=== PATIENT | male | born 1950 | race Caucasian/White ===

== ENCOUNTER 2017-09-25 13:27 | Inpatient (IN) | payer MEDICARE, MEDICAID ==
[2017-09-25] VITALS (11 sets, daily range): BP systolic 62–97; BP diastolic 40–57; PULSE 65–102; RESP 18–23; TEMP 97.5–98.1; O2SAT 94–100
[~2017-09-25] VITALS: Ht 165.1 cm; Wt 80.0 kg
[~2017-09-25 13:27] MED LIST: ALPR0.5T3 PO; LISI10TA3 PO; MEDR4PAK PO; ZANT150T2 PO
[2017-09-25] MEDS ORDERED: SODIUM CHLOR 0.9% 1000 ML INJ 100 ML IV ONE (14:07)
[2017-09-25] MEDS ORDERED: SODIUM CHLOR 0.9% 1000 ML INJ 1,000 ML IV ONE ×3 (14:07→16:00)
[2017-09-25] MEDS ORDERED: RESP: ALBUTEROL 2.5 MG/IPRATROPIUM 0.5 MG NEB (SCH) NEB ONE ×2 (14:30→15:00)
[2017-09-25 14:37] LABS: AUTOMATED NEUTROPHIL # 10.9 TH/MM3 (1.8-7.7); BASOPHIL # 0.1 TH/MM3 (0-0.2); BASOPHIL % 0.4 % (0.0-2.0); EOSINOPHIL % 0.1 % (0.0-4.0); HEMOGLOBIN 13.5 GM/DL (13.0-17.0); LYMPH % 12.3 % (9.0-44.0); LYMPHOCYTE # 1.7 TH/MM3 (1.0-4.8); MEAN CELL VOLUME 95.8 FL (80.0-100.0); MEAN CORPUSCULAR HEMOGLOBIN 32.2 PG (27.0-34.0); MEAN CORPUSCULAR HGB CONC 33.6 % (32.0-36.0); MEAN PLATELET VOLUME 7.5 FL (7.0-11.0); MONO % 6.1 % (0.0-8.0); MONOCYTE # 0.8 TH/MM3 (0-0.9); NEUT % 81.1 % (16.0-70.0); PLATELET COUNT 316 TH/MM3 (150-450); RED BLOOD COUNT 4.18 MIL/MM3 (4.50-5.90); WHITE BLOOD COUNT 13.5 TH/MM3 (4.0-11.0)
--- NOTE | 2017-09-25 14:55 | RADRPT ---
EXAM DATE/TIME: 09/25/2017 14:33 [facility] COMPARISON: No previous studies available for comparison. INDICATIONS : Cough, dizziness, shortness of breath and lower left chest pain for one week. MEDICAL HISTORY : None. SURGICAL HISTORY : None. ENCOUNTER: Initial ACUITY: 1 day PAIN SCORE: 4/10 LOCATION: Left lower chest FINDINGS: A single view of the chest demonstrates the lungs to be symmetrically aerated without evidence of mas s, infiltrate or effusion. Mild compensated cardiomegaly. Osseous structures are intact. CONCLUSION: Mild compensated cardiomegaly Kenneth Hightower MD FACR on September 25, 2017 at 14:52 Board Certified Radiologist. This report was verified electronically.
[2017-09-25] MEDS ORDERED: methylPREDNISolone SOD SUCC 125 MG/2 ML VIAL IV PUSH ONE (15:00)
[2017-09-25 15:02] LABS: ALBUMIN 3.1 GM/DL (3.4-5.0); ALT (GPT) 25 U/L (12-78); AST (GOT) 15 U/L (15-37); BICARBONATE 18.3 MEQ/L (21.0-32.0); BLOOD UREA NITROGEN 49 MG/DL (7-18); CALCIUM 8.5 MG/DL (8.5-10.1); CHLORIDE 106 MEQ/L (98-107); CREATININE 2.32 MG/DL (0.60-1.30); DIRECT BILIRUBIN ADULT 0.1 MG/DL (0.0-0.2); GLOMERULAR FILTRATION RATE 28 ML/MIN (>89); GLUCOSE,RANDOM 129 MG/DL (74-106); MAGNESIUM 1.8 MG/DL (1.5-2.5); PHOSPHORUS 3.3 MG/DL (2.5-4.9); SODIUM (NA) 135 MEQ/L (136-145)
[2017-09-25 15:05] LABS: ALKALINE PHOSPHATASE 59 U/L (45-117); INDIRECT BILIRUBIN 0.4 MG/DL (0.0-0.8); TOTAL BILIRUBIN ADULT 0.5 MG/DL (0.2-1.0); TOTAL PROTEIN 7.4 GM/DL (6.4-8.2); TROPONIN I 0.02 NG/ML (0.02-0.05)
--- NOTE | 2017-09-25 15:19 | PD ---
HPI Chief Complaint: Cold / Flu Symptoms Time Seen by Provider: 14:03 Travel History International Travel<30 days: No Contact w/Intl Traveler<30days: No Traveled to known affect area: No History of Present Illness HPI 67 y/o male states he's been having cough and congestion over the past couple of days. He states he's also been having a high fever. He states he feels worse when he moves around. He denies other specific modifying factors. He denies specific sick contacts. He denies other specific concurrent complaints. He denies prior inhaler use. Duration is 3 days. PFSH Past Medical History Arthritis: Yes Anxiety: Yes Depression: Yes COPD: Yes Diminished Hearing: No Gastrointestinal Disorders: Yes (HX OF BLEEDING ULCER) GERD: Yes Hypertension: Yes Myocardial Infarction: No Ulcer: Yes Past Surgical History Abdominal Surgery: Yes (UMBILICAL HERNIA REPAIR, ) Other Surgery: Yes (SURGERY STATES FLAP NEAR STOMACH FOR REPAIR OF ACID REFLUX ) Social History Alcohol Use: No Tobacco Use: No (QUIT 2010, SMOKED 1 PPD FOR APPROX 50+ YRS) Substance Use: No Allergies-Medications (Allergen,Severity, Reaction): Coded Allergies: No Known Allergies (Verified Allergy, Unknown, 09/25/17) Reported Meds & Prescriptions Reported Meds & Active Scripts Active Zantac (Ranitidine HCl) 150 Mg Tab 150 Mg PO BID Medrol Dosepak (Methylprednisolone) 4 Mg Dspk 4 Mg PO DIRECTED Per Pharmacist direction Reported Alprazolam 0.5 Mg Tab 0.5 Mg PO BID PRN Lisinopril 10 Mg Tab 10 Mg PO DAILY Review of Systems Except as stated in HPI: all other systems reviewed are Neg Physical Exam Narrative GENERAL: 67-year-old male who appears ill SKIN: Focused skin assessment warm/dry. HEAD: Atraumatic. Normocephalic. EYES: Pupils equal and round. No scleral icterus. No injection or drainage. ENT: No nasal bleeding or discharge. Mucous membranes pink and moist. NECK: Trachea midline. CARDIOVASCULAR: Regular rate and rhythm. RESPIRATORY: No accessory muscle use. Expiratory wheezing bilaterally. GASTROINTESTINAL: Abdomen soft, non-tender, nondistended. MUSCULOSKELETAL: No obvious deformities. No clubbing. No cyanosis. NEUROLOGICAL: Awake. Moves all extremities. Normal speech. PSYCHIATRIC: Appropriate mood and affect; insight and judgment normal. Data Data Last Documented VS Vital Signs Date Time Temp Pulse Resp B/P (MAP) Pulse Ox O2 Delivery O2 Flow Rate FiO2 09/25/17 16:57 83 92/52 (65) 95 09/25/17 15:31 22 Aerosol Mask 09/25/17 13:52 97.5 Orders Orders Electrocardiogram (09/25/17 13:51) Complete Blood Count With Diff (09/25/17 13:51) Basic Metabolic Panel (Bmp) (09/25/17 13:51) Ckmb (Isoenzyme) Profile (09/25/17 13:51) Troponin I (09/25/17 13:51) Sepsis Workup Initiated (09/25/17 ) Electrocardiogram (09/25/17 14:07) Prothrombin Time / Inr (Pt) (09/25/17 14:07) Act Partial Throm Time (Ptt) (09/25/17 14:07) Lactic Acid Sepsis Protocol (09/25/17 14:07) Urinalysis - C+S If Indicated (09/25/17 14:07) Influenzae A/B Antigen (09/25/17 14:07) Blood Culture (09/25/17 14:07) Chest, Single Ap (09/25/17 14:07) Blood Glucose (09/25/17 14:07) Ecg Monitoring (09/25/17 14:07) Iv Access Insert/Monitor (09/25/17 14:07) Oximetry (09/25/17 14:07) Sodium Chlor 0.9% 1000 Ml Inj (Ns 1000 M (09/25/17 14:07) Sodium Chlor 0.9% 1000 Ml Inj (Ns 1000 M (09/25/17 14:07) Sodium Chlor 0.9% 1000 Ml Inj (Ns 1000 M (09/25/17 14:07) Albuterol-Ipratropium Neb (Duoneb Neb) (09/25/17 14:30) Hepatic Functional Panel (09/25/17 14:15) Magnesium (Mg) (09/25/17 14:15) Phosphorus (Po4) (09/25/17 14:15) Albuterol-Ipratropium Neb (Duoneb Neb) (09/25/17 15:00) Methylprednisolone So Succ Inj (Solumedr (09/25/17 15:00) CKMB (09/25/17 14:15) CKMB% (09/25/17 14:15) Sodium Chlor 0.9% 1000 Ml Inj (Ns 1000 M (09/25/17 16:00) Vancomycin Inj (Vancomycin Inj) (09/25/17 15:58) Piperacil-Tazo 4.5 Gm Premix (Zosyn 4.5 (09/25/17 15:58) Ct Thorax/ Chest Wo Iv Contras (09/25/17 16:15) Ct Abd/Pel W/O Iv Contrast (09/25/17 16:15) B-Type Natriuretic Peptide (09/25/17 16:55) Oseltamivir (Tamiflu) (09/25/17 17:15) Admit Order (Ed Use Only) (09/25/17 17:01) Labs Laboratory Tests Test 09/25/17 14:15 09/25/17 14:18 09/25/17 14:25 White Blood Count 13.5 TH/MM3 Red Blood Count 4.18 MIL/MM3 Hemoglobin 13.5 GM/DL Hematocrit 40.0 % Mean Corpuscular Volume 95.8 FL Mean Corpuscular Hemoglobin 32.2 PG Mean Corpuscular Hemoglobin Concent 33.6 % Red Cell Distribution Width 13.0 % Platelet Count 316 TH/MM3 Mean Platelet Volume 7.5 FL Neutrophils (%) (Auto) 81.1 % Lymphocytes (%) (Auto) 12.3 % Monocytes (%) (Auto) 6.1 % Eosinophils (%) (Auto) 0.1 % Basophils (%) (Auto) 0.4 % Neutrophils # (Auto) 10.9 TH/MM3 Lymphocytes # (Auto) 1.7 TH/MM3 Monocytes # (Auto) 0.8 TH/MM3 Eosinophils # (Auto) 0.0 TH/MM3 Basophils # (Auto) 0.1 TH/MM3 CBC Comment AUTO DIFF Differential Total Cells Counted 100 Neutrophils % (Manual) 61 % Band Neutrophils % 24 % Lymphocytes % 11 % Monocytes % 4 % Neutrophils # (Manual) 11.5 TH/MM3 Differential Comment FINAL DIFF MANUAL Toxic Granulation 1+ Dohle Bodies PRESENT Platelet Estimate NORMAL Platelet Morphology Comment NORMAL Prothrombin Time 11.4 SEC Prothromb Time International Ratio 1.1 RATIO Activated Partial Thromboplast Time 25.2 SEC Blood Urea Nitrogen 49 MG/DL Creatinine 2.32 MG/DL Random Glucose 129 MG/DL Total Protein 7.4 GM/DL Albumin 3.1 GM/DL Calcium Level 8.5 MG/DL Phosphorus Level 3.3 MG/DL Magnesium Level 1.8 MG/DL Alkaline Phosphatase 59 U/L Aspartate Amino Transf (AST/SGOT) 15 U/L Alanine Aminotransferase (ALT/SGPT) 25 U/L Total Bilirubin 0.5 MG/DL Direct Bilirubin 0.1 MG/DL Sodium Level 135 MEQ/L Potassium Level 4.4 MEQ/L Chloride Level 106 MEQ/L Carbon Dioxide Level 18.3 MEQ/L Anion Gap 11 MEQ/L Estimat Glomerular Filtration Rate 28 ML/MIN Indirect Bilirubin 0.4 MG/DL Total Creatine Kinase 143 U/L Creatine Kinase MB 1.8 NG/ML Troponin I 0.02 NG/ML Lactic Acid Level 1.3 mmol/L Urine Color YELLOW Urine Turbidity HAZY Urine pH 5.0 Urine Specific [place] 1.013 Urine Protein TRACE mg/dL Urine Glucose (UA) NEG mg/dL Urine Ketones NEG mg/dL Urine Occult Blood NEG Urine Nitrite NEG Urine Bilirubin NEG Urine Urobilinogen LESS THAN 2.0 MG/DL Urine Leukocyte Esterase NEG Urine WBC 2 /hpf Urine Hyaline Casts 21 /lpf Urine Mucus FEW /lpf Microscopic Urinalysis Comment CATH-CULT NOT IND MDM Medical Decision Making Medical Screen Exam Complete: Yes Emergency Medical Condition: Yes Medical Record Reviewed: Yes (past history confirmed) Interpretation(s) CBC & BMP Diagram 09/25/17 14:15 Total Protein 7.4, Albumin 3.1 L, Calcium Level 8.5, Phosphorus Level 3.3, Magnesium Level 1.8, Alkaline Phosphatase 59, Aspartate Amino Transf (AST/SGOT) 15, Alanine Aminotransferase (ALT/SGPT) 25, Total Bilirubin 0.5, Direct Bilirubin 0.1 Last 24 hours Impressions Chest X-Ray 09/25/17 1407 Signed Impressions: Service Date/Time: Monday, September 25, 2017 14:33 - CONCLUSION: Mild compensated cardiomegaly Kenneth Hightower MD FACR Differential Diagnosis Pneumonia, sepsis, COPD, anemia, renal failure Narrative Course Will check blood work, chest x-ray, influenza and dose with IV fluids and DuoNeb and reevaluate ED workup shows flulike symptoms with acute renal failure. No obvious source but scattered infiltrate on CT chest noted. Patient feeling better after IV fluid hydration and map is now in the 60s. He will be monitored closely in the ICU. He was given broad-spectrum coverage. Critical Care Narrative Aggregate critical care time was 31 minutes. Time to perform other separately billable procedures was not included in the critical care time. My time did not include minutes spent treating any other patients simultaneously or on activities that did not directly contribute to the patient's treatment. The services I provided to this patient were to treat and/or prevent clinically significant deterioration that could result in: Restrained failure, I provided critical care services requiring my management, as noted below: Chart data review, documentation time, medication orders and management, vital sign assessments/reviewing monitor data, ordering and reviewing lab tests, ordering and interpreting/reviewing x-rays and diagnostic studies, care of the patient and discussion of the patient with the admitting physicians. Sepsis Criteria SIRS Criteria (2 or more): RR > 20 or PaCO2 < 32, WBC > 78975, < 4000 or > 10 % bands Sepsis Criteria (SIRS+source): Infect source susp/known Severe Sepsis (+one): Acute Oliguria/Renal Failure Criteria Outcome: Meets severe sepsis criteria Physician Communication Physician Communication dr evans agrees to admit Diagnosis Primary Impression: Sepsis Qualified Codes: A41.9 - Sepsis, unspecified organism Additional Impressions: Acute renal failure Qualified Codes: N17.9 - Acute kidney failure, unspecified Flu-like symptoms Bandemia Reactive airway disease Qualified Codes: J45.901 - Unspecified asthma with (acute) exacerbation Hypotension Qualified Codes: I95.9 - Hypotension, unspecified Admitting Information Admitting Physician Requests: Admit Sera Kumar MD Sep 25, 2017 15:19
[2017-09-25 15:26] LABS: INTERNATIONAL NORMALIZED RATIO 1.1 RATIO; PROTHROMBIN TIME - PATIENT 11.4 SEC (9.8-11.6)
[2017-09-25] MEDS ORDERED: VANCOMYCIN INJ 1,000 MG in SODIUM CHLOR 0.9% 250 ML INJ 250 ML IV STA (15:58)
[2017-09-25] MEDS ORDERED: PIPERACIL-TAZO 4.5 GM PREMIX 100 ML IV STA (15:58)
[2017-09-25 16:04] LABS: BANDS 24 % (0-6); LYMPHOCYTES 11 % (9-44); MONOCYTES 4 % (0-8); NEUTROPHIL # MANUAL DIFF 11.5 TH/MM3 (1.8-7.7); POLYS (SEG NEUTROPHILS) 61 % (16-70)
[2017-09-25 16:05] LABS: DOHLE BODIES PRESENT (NONE SEEN); TOXIC GRANULATION 1+ (NORMAL)
--- NOTE | 2017-09-25 16:48 | RADRPT ---
EXAM DATE/TIME: 09/25/2017 16:30 [facility] COMPARISON: No previous studies available for comparison. INDICATIONS : Shortness of breath. Chest pain. RADIATION DOSE: 17.20 CTDIvol (mGy) ; Combined studies - Thorax/Abdomen/Pelvis MEDICAL HISTORY : Chronic obstructive pulmonary disease. Congestive heart failure. Hypertension. SURGICAL HISTORY : None. ENCOUNTER: Initial ACUITY: 1 day PAIN SCALE: 6/10 LOCATION: Bilateral chest TECHNIQUE: Volumetric scanning of the chest was performed. Using automated exposure control and adjustment of t he mA and/or kV according to patient size, radiation dose was kept as low as reasonably achievable to obtain optimal diagnostic quality images. DICOM format image data is available electronically for r eview and comparison. Follow-up recommendations for detected pulmonary nodules are based at a minimum on nodule size and pa tient risk factors according to Fleischner Society Guidelines. FINDINGS: There is cardiomegaly with moderate interstitial edema present. There is no pneumothorax. There is no pleural effusion. There is no consolidation. Moderate coronary calcifications are evident. There is no adenopathy. Review of bone windows reveals moderate degenerative changes. Upper abdominal contents as detailed CT scan abdomen and pelvis. CONCLUSION: Moderate congestive failure. Kenneth Hightower MD FACR on September 25, 2017 at 16:44 Board Certified Radiologist. This report was verified electronically.
--- NOTE | 2017-09-25 16:52 | RADRPT ---
EXAM DATE/TIME: 09/25/2017 16:30 [facility] COMPARISON: No previous studies available for comparison. INDICATIONS : Bilateral flank pain. ORAL CONTRAST: No oral contrast ingested. RADIATION DOSE: 17.20 CTDIvol (mGy) ; Combined studies - Thorax/Abdomen/Pelvis MEDICAL HISTORY : Chronic obstructive pulmonary disease. Congestive heart failure. Hypertension. SURGICAL HISTORY : None. ENCOUNTER: Initial ACUITY: 1 day PAIN SCALE: 6/10 LOCATION: Bilateral flank TECHNIQUE: Volumetric scanning of the abdomen and pelvis was performed. Using automated exposure control and ad justment of the mA and/or kV according to patient size, radiation dose was kept as low as reasonably achievable to obtain optimal diagnostic quality images. DICOM format image data is available electro nically for review and comparison. FINDINGS: LOWER LUNGS: Bibasilar parenchymal changes. Liver contains a single calcification in the right lobe. Gallbladder is unremarkable Spleen and pancreas appear normal Adrenal glands are unremarkable There is perinephric stranding about both kidneys without stone. Low-density 1.8 cm mass mid pole ri ght kidney incompletely evaluated on today's exam There is no ascites or adenopathy Pelvic contents are unremarkable Review of bone windows reveals extensive degenerative changes in the lower lumbar spine. CONCLUSION: 1. 1.8 cm renal mass probably cyst incompletely evaluated the exam. 2. Negative for stone or obstruction 3. I do not see an etiology for patient's abdominal pain Kenneth Hightower MD FACR on September 25, 2017 at 16:47 Board Certified Radiologist. This report was verified electronically.
[2017-09-25 16:53] LABS: BILIRUBIN, URINE NEG (NEG); BLOOD, URINE NEG (NEG); GLUCOSE,URINE NEG (NEG); HYALINE CAST, URINE 21 /lpf (RARE); KETONE, URINE NEG (NEG); MUCUS URINE FEW /lpf (OCC); NITRITE,URINE NEG (NEG); URINE COLOR YELLOW (YELLW/STRAW); URINE LEUKOCYTE ESTERASE NEG (NEG)
[2017-09-25] MEDS ORDERED: RESP: ALBUTEROL 2.5 MG/IPRATROPIUM 0.5 MG NEB (PRN) INH (17:00)
[2017-09-25] MEDS ORDERED: CHLORHEXIDINE GLUCONATE 2 % 1 PACK (2 CLOTHS) TOP PRN (17:00)
[2017-09-25] MEDS ORDERED: MISCELLANEOUS NURSING INFORMATION XX SCH (17:00)
[2017-09-25] MEDS ORDERED: OSELTAMIVIR PHOSPHATE 75 MG CAP PO ONE (17:15)
[2017-09-25] MEDS: SODIUM CHLOR 0.9% 1000 ML INJ 1,000 ML IV SCH (18:19)
[2017-09-25] MEDS: AZITHROMYCIN INJ 250 MG in SODIUM CHLOR 0.9% 250 ML INJ 250 ML IV SCH (18:32)
[2017-09-25] MEDS: HEPARIN SODIUM - SQ 10,000 UNITS/ML VIAL SQ SCH (18:32)
--- NOTE | 2017-09-25 19:28 | HHI.HP ---
[facility] Service Critical Care Medicine Primary Care Physician Jeff Patel MD Admission Diagnosis sepsis Diagnosis: Travel History International Travel<30 Days: No Contact w/Intl Traveler <30 Da: No Traveled to Known Affected Are: No History of Present Illness 67-year-old pleasant male presents with complaints of been having cough and congestion over the past couple of days. He states he's also been having a high fever. He states he feels worse when he moves around. He denies other specific modifying factors. He denies specific sick contacts. He denies other specific concurrent complaints. He denies prior inhaler use. Review of Systems Constitutional: COMPLAINS OF: Diaphoretic episodes, Fatigue, Fever, DENIES: Weight gain, Weight loss, Chills, Dizziness, Change in appetite, Night Sweats Endocrine: DENIES: Heat/cold intolerance, Polydipsia, Polyuria, Polyphagia Eyes: DENIES: Blurred vision, Diplopia, Eye inflammation, Eye pain, Vision loss , Photosensitivity, Double Vision Ears, nose, mouth, throat: DENIES: Tinnitus, Hearing loss, Vertigo, Nasal discharge, Oral lesions, Throat pain, Hoarseness, Ear Pain, Running Nose, Epistaxis, Sinus Pain, Toothache, Odynophagia Respiratory: COMPLAINS OF: Cough, Sputum production, Shortness of breath, DENIES: Apneas, Snoring, Wheezing, Hemoptysis Cardiovascular: COMPLAINS OF: Dyspnea on Exertion, DENIES: Chest pain, Palpitations, Syncope, PND, Lower Extremity Edema, Orthopnea, Claudication Gastrointestinal: DENIES: Abdominal pain, Black stools, Bloody stools, Constipation, Diarrhea, Nausea, Vomiting, Difficulty Swallowing, Anorexia Genitourinary: DENIES: Sexual dysfunction, Urinary frequency, Urinary incontinence, Urgency, Hematuria, Dysuria, Nocturia, Penile Discharge, Testicular Pain, Testicular Swelling Musculoskeletal: DENIES: Joint pain, Muscle aches, Stiffness, Joint Swelling, Back pain, Neck pain Integumentary: DENIES: Abnormal pigmentation, Nail changes, Pruritus, Rash Hematologic/lymphatic: DENIES: Bruising, Lymphadenopathy Immunologic/allergic: DENIES: Eczema, Urticaria Neurologic: DENIES: Abnormal gait, Headache, Localized weakness, Paresthesias, Seizures, Speech Problems, Tremor, Poor Balance Psychiatric: DENIES: Anxiety, Confusion, Mood changes, Depression, Hallucinations, Agitation, Suicidal Ideation, Homicidal Ideation, Delusions Past Family Social History Allergies: Coded Allergies: No Known Allergies (Verified Allergy, Unknown, 09/25/17) Past Medical History Arthritis: Yes Anxiety: Yes Depression: Yes COPD: Yes Gastrointestinal Disorders: Yes (HX OF BLEEDING ULCER) GERD: Yes Hypertension: Yes Ulcer: Yes Past Surgical History Abdominal Surgery: Yes (UMBILICAL HERNIA REPAIR, ) Other Surgery: Yes (SURGERY STATES FLAP NEAR STOMACH FOR REPAIR OF ACID REFLUX ) Reported Medications Reported Meds & Active Scripts Active Zantac (Ranitidine HCl) 150 Mg Tab 150 Mg PO BID Medrol Dosepak (Methylprednisolone) 4 Mg Dspk 4 Mg PO DIRECTED Per Pharmacist direction Reported Alprazolam 0.5 Mg Tab 0.5 Mg PO BID PRN Lisinopril 10 Mg Tab 10 Mg PO DAILY Active Ordered Medications Current Medications Medications (Trade) Dose Ordered Sig/Viviana Route PRN Reason Start Time Stop Time Status Last Admin Dose Admin Sodium Chloride 1,000 ml @ 84 mls/hr [id number] IV 09/25/17 18:00 09/25/17 18:19 Famotidine (Pepcid Inj) 10 mg Q12HR IV PUSH 09/25/17 21:00 Albuterol/ Ipratropium (Duoneb Neb) 1 ampule Q2HR NEB PRN INH WHEEZING 09/25/17 17:00 Heparin Sodium (Porcine) (Heparin Inj) 5,000 units Q12H SQ 09/25/17 18:00 09/25/17 18:32 Miscellaneous Information 1 [id number] 09/25/17 17:00 Chlorhexidine Gluconate (Chlorhexidine 2% Cloth) 3 pack Taper DAILY@04 TOP 09/26/17 04:00 09/22/18 03:59 Chlorhexidine Gluconate (Chlorhexidine 2% Cloth) 3 pack UNSCH PRN TOP HYGIENIC CARE 09/25/17 17:00 Piperacillin Sod/ Tazobactam Sod 50 ml @ 100 mls/hr Q8H IV 09/26/17 01:00 Azithromycin 250 mg/Sodium Chloride 250 ml @ 250 mls/hr Q24H IV 09/25/17 18:00 09/25/17 18:32 Family History No family history significant for pulmonary cancer Social History Alcohol Use: No Tobacco Use: No (QUIT 2010, SMOKED 1 PPD FOR APPROX 50+ YRS) Substance Use: No Physical Exam Vital Signs Vital Signs Date Time Temp Pulse Resp B/P (MAP) Pulse Ox O2 Delivery O2 Flow Rate FiO2 09/25/17 16:57 83 92/52 (65) 95 09/25/17 15:58 92 88/51 (63) 09/25/17 15:31 83 22 86/49 (61) 95 Aerosol Mask 09/25/17 14:44 98 Room Air 09/25/17 13:52 97.5 102 22 63/42 (49) 94 62/40 (47) Physical Exam GENERAL: Well-nourished, well-developed patient. SKIN: Warm and dry. HEAD: Normocephalic. EYES: No scleral icterus. No injection or drainage. NECK: Supple, trachea midline. No JVD or lymphadenopathy. CARDIOVASCULAR: Regular rate and rhythm without murmurs, gallops, or rubs. RESPIRATORY: Breath sounds equal bilaterally. No accessory muscle use. GASTROINTESTINAL: Abdomen soft, non-tender, nondistended. MUSCULOSKELETAL: No cyanosis, or edema. BACK: Nontender without obvious deformity. NEURO EXAM: GCS: 15 Mental Status: The patient is alert and oriented to person, place, and time with normal speech. Laboratory Laboratory Tests Test 09/25/17 14:15 09/25/17 14:18 09/25/17 14:25 White Blood Count 13.5 Red Blood Count 4.18 Hemoglobin 13.5 Hematocrit 40.0 Mean Corpuscular Volume 95.8 Mean Corpuscular Hemoglobin 32.2 Mean Corpuscular Hemoglobin Concent 33.6 Red Cell Distribution Width 13.0 Platelet Count 316 Mean Platelet Volume 7.5 Neutrophils (%) (Auto) 81.1 Lymphocytes (%) (Auto) 12.3 Monocytes (%) (Auto) 6.1 Eosinophils (%) (Auto) 0.1 Basophils (%) (Auto) 0.4 Neutrophils # (Auto) 10.9 Lymphocytes # (Auto) 1.7 Monocytes # (Auto) 0.8 Eosinophils # (Auto) 0.0 Basophils # (Auto) 0.1 CBC Comment AUTO DIFF Differential Total Cells Counted 100 Neutrophils % (Manual) 61 Band Neutrophils % 24 Lymphocytes % 11 Monocytes % 4 Neutrophils # (Manual) 11.5 Differential Comment FINAL DIFF MANUAL Toxic Granulation 1+ Dohle Bodies PRESENT Platelet Estimate NORMAL Platelet Morphology Comment NORMAL Prothrombin Time 11.4 Prothromb Time International Ratio 1.1 Activated Partial Thromboplast Time 25.2 Blood Urea Nitrogen 49 Creatinine 2.32 Random Glucose 129 Total Protein 7.4 Albumin 3.1 Calcium Level 8.5 Phosphorus Level 3.3 Magnesium Level 1.8 Alkaline Phosphatase 59 Aspartate Amino Transf (AST/SGOT) 15 Alanine Aminotransferase (ALT/SGPT) 25 Total Bilirubin 0.5 Direct Bilirubin 0.1 Sodium Level 135 Potassium Level 4.4 Chloride Level 106 Carbon Dioxide Level 18.3 Anion Gap 11 Estimat Glomerular Filtration Rate 28 Indirect Bilirubin 0.4 Total Creatine Kinase 143 Creatine Kinase MB 1.8 Troponin I 0.02 Lactic Acid Level 1.3 Urine Color YELLOW Urine Turbidity HAZY Urine pH 5.0 Urine Specific [place] 1.013 Urine Protein TRACE Urine Glucose (UA) NEG Urine Ketones NEG Urine Occult Blood NEG Urine Nitrite NEG Urine Bilirubin NEG Urine Urobilinogen LESS THAN 2.0 Urine Leukocyte Esterase NEG Urine WBC 2 Urine Hyaline Casts 21 Urine Mucus FEW Microscopic Urinalysis Comment CATH-CULT NOT IND Date/Time Source Procedure Growth Status 09/25/17 14:15 Blood Peripheral Aerobic Blood Culture Pending Received 09/25/17 14:15 Blood Peripheral Anaerobic Blood Culture Pending Received 09/25/17 18:04 Nasal Aspirate Influenza Types A,B Antigen (JOHNNY) - Final NEGATIVE FOR FLU A AND B ANTIGEN.... Complete 09/25/17 17:00 Urine Catheterized Urine Urine Culture Pending Received Result Diagram: 09/25/17 1415 09/25/17 1415 Imaging Last [address] 09/25/17 1615 Signed Impressions: Service Date/Time: Monday, September 25, 2017 16:30 - CONCLUSION: Moderate congestive failure. Kenneth Hightower MD FACR Abdomen/Pelvis CT 09/25/17 1615 Signed Impressions: Service Date/Time: Monday, September 25, 2017 16:30 - CONCLUSION: 1. 1.8 cm renal mass probably cyst incompletely evaluated the exam. 2. Negative for stone or obstruction 3. I do not see an etiology for patient's abdominal pain Kenneth Hightower MD FACR Chest X-Ray 09/25/17 1407 Signed Impressions: Service Date/Time: Monday, September 25, 2017 14:33 - CONCLUSION: Mild compensated cardiomegaly Kenneth Hightower MD FACR Caprini VTE Risk Assessment Caprini VTE Risk Assessment: Mod/High Risk (score >= 2) Caprini Risk Assessment Model Point Value = 1 Point Value = 2 Point Value = 3 Point Value = 5 Age 41-60 Minor surgery BMI > 25 kg/m2 Swollen legs Varicose veins or History of unexplained or recurrent spontaneous Oral contraceptives or hormone replacement Sepsis (< 1 month) Serious lung disease, including pneumonia (< 1 month) Abnormal pulmonary function Acute myocardial infarction Congestive heart failure (< 1 month) History of inflammatory bowel disease Medical patient at bed rest Age 61-74 Arthroscopic surgery Major open surgery (> 45 min) Laparoscopic surgery (> 45 min) Malignancy Confined to bed (> 72 hours) Immobilizing plaster cast Central venous access Age >= 75 History of VTE Family history of VTE Factor V Leiden Prothrombin [id number] Lupus anticoagulant Anticardiolipin antibodies Elevated serum homocysteine Heparin-induced thrombocytopenia Other congenital or acquired thrombophilia Stroke (< 1 month) Elective arthroplasty Hip, pelvis, or leg fracture Acute spinal cord injury (< 1 month) Prophylaxis Regimen Total Risk Factor Score Risk Level Prophylaxis Regimen 0-1 Low Early ambulation 2 Moderate Order ONE of the following: *Sequential Compression Device (SCD) *Heparin 5000 units SQ BID 3-4 Higher Order ONE of the following medications: *Heparin 5000 units SQ TID *Enoxaparin/Lovenox 40 mg SQ daily (WT < 150 kg, CrCl > 30 mL/min) *Enoxaparin/Lovenox 30 mg SQ daily (WT < 150 kg, CrCl > 10-29 mL/min) *Enoxaparin/Lovenox 30 mg SQ BID (WT < 150 kg, CrCl > 30 mL/min) AND/OR *Sequential Compression Device (SCD) 5 or more Highest Order ONE of the following medications: *Heparin 5000 units SQ TID (Preferred with Epidurals) *Enoxaparin/Lovenox 40 mg SQ daily (WT < 150 kg, CrCl > 30 mL/min) *Enoxaparin/Lovenox 30 mg SQ daily (WT < 150 kg, CrCl > 10-29 mL/min) *Enoxaparin/Lovenox 30 mg SQ BID (WT < 150 kg, CrCl > 30 mL/min) AND *Sequential Compression Device (SCD) Assessment and Plan Assessment and Plan Pneumonia - Community-acquired - Influenza A and B- - Empiric antibiotics - Follow-up cultures and de-escalate per sensitivity - Urine antigen Hypotension - Dehydration - Aggressive IV fluid hydration COPD - No exacerbation - DuoNeb scheduled and when necessary - No steroids at this time GERD - Pepcid Hypertension - Resume home meds when indicated DVT GI prophylaxis - Teds SCDs - Subcutaneous heparin - Liang Jose MD Sep 25, 2017 7:28 pm
[2017-09-25] MEDS: FAMOTIDINE 20 MG/2 ML VIAL IV PUSH SCH (20:30)
[2017-09-26] VITALS (26 sets, daily range): BP systolic 88–133; BP diastolic 50–72; PULSE 60–88; RESP 16–35; TEMP 97.2–98.7; O2SAT 96–100
[2017-09-26] MEDS: PIPERACIL-TAZO 3.375 GM PREMIX 50 ML IV SCH ×3 (01:25→17:52)
[2017-09-26] MEDS: CHLORHEXIDINE GLUCONATE 2 % 1 PACK (2 CLOTHS) TOP SCH (04:00)
--- NOTE | 2017-09-26 04:32 | RADRPT ---
EXAM DATE/TIME: 09/26/2017 03:16 [place] COMPARISON: CHEST SINGLE AP, September 25, 2017, 14:33. INDICATIONS : Shortness of breath, possible pulmonary disease. MEDICAL HISTORY : None. SURGICAL HISTORY : None. ENCOUNTER: Subsequent ACUITY: 2 days PAIN SCORE: 0/10 LOCATION: Bilateral chest FINDINGS: A single view of the chest demonstrates the lungs to be symmetrically aerated without evidence of mas s, infiltrate or effusion. The heart size remains at the upper limits of normal with no perihilar ed rajani. There is apparent mild scarring at the lung bases. Osseous structures are intact. CONCLUSION: Stable appearance with no acute cardiopulmonary disease. Jf Davis MD on September 26, 2017 at 4:29 Board Certified Radiologist. This report was verified electronically.
[2017-09-26] MEDS: HEPARIN SODIUM - SQ 10,000 UNITS/ML VIAL SQ SCH ×2 (06:00→18:16)
[2017-09-26] MEDS: SODIUM CHLOR 0.9% 1000 ML INJ 1,000 ML IV SCH ×2 (06:02→17:56)
[2017-09-26 06:14] LABS: AUTOMATED NEUTROPHIL # 7.2 TH/MM3 (1.8-7.7); BASOPHIL % 0.1 % (0.0-2.0); HEMATOCRIT 31.4 % (39.0-51.0); HEMOGLOBIN 11.1 GM/DL (13.0-17.0); LYMPHOCYTE # 1.4 TH/MM3 (1.0-4.8); MEAN CELL VOLUME 94.5 FL (80.0-100.0); MEAN CORPUSCULAR HEMOGLOBIN 33.5 PG (27.0-34.0); MEAN CORPUSCULAR HGB CONC 35.4 % (32.0-36.0); MEAN PLATELET VOLUME 7.1 FL (7.0-11.0); MONO % 3.5 % (0.0-8.0); MONOCYTE # 0.3 TH/MM3 (0-0.9); NEUT % 80.4 % (16.0-70.0); PLATELET COUNT 229 TH/MM3 (150-450); RED BLOOD COUNT 3.33 MIL/MM3 (4.50-5.90); RED CELL DISTRIBUTION WIDTH 13.1 % (11.6-17.2)
[2017-09-26 06:49] LABS: ALBUMIN 2.5 GM/DL (3.4-5.0); ALKALINE PHOSPHATASE 45 U/L (45-117); ALT (GPT) 19 U/L (12-78); AST (GOT) 12 U/L (15-37); BLOOD UREA NITROGEN 25 MG/DL (7-18); CALCIUM 7.7 MG/DL (8.5-10.1); CHLORIDE 114 MEQ/L (98-107); CREATININE 0.82 MG/DL (0.60-1.30); GLOMERULAR FILTRATION RATE 94 ML/MIN (>89); GLUCOSE,RANDOM 128 MG/DL (74-106); SODIUM (NA) 142 MEQ/L (136-145); TOTAL BILIRUBIN ADULT 0.3 MG/DL (0.2-1.0); TOTAL PROTEIN 6.2 GM/DL (6.4-8.2)
[2017-09-26] MEDS ORDERED: DEXTROSE 50% IN WATER 50 ML VIAL(D50) IV PUSH PRN (08:15)
[2017-09-26] MEDS ORDERED: GLUCAGON 1 MG/ML VIAL OTHER PRN (08:15)
--- NOTE | 2017-09-26 08:15 | HHI.CCPN ---
Subjective Remarks/Hospital Course 67-year-old pleasant male presents with complaints of been having cough and congestion over the past couple of days. He states he's also been having a high fever. He states he feels worse when he moves around. He denies other specific modifying factors. He denies specific sick contacts. He denies other specific concurrent complaints. He denies prior inhaler use. 09/26 Patient is lying in bed in no acute resp distress. Afebrile. Objective Vital Signs Date Time Temp Pulse Resp B/P (MAP) Pulse Ox O2 Delivery O2 Flow Rate FiO2 09/26/17 07:00 69 22 110/67 (81) 99 09/26/17 04:00 97.9 09/25/17 20:51 Nasal Cannula 2.00 Intake and Output 09/26/17 09/26/17 09/27/17 08:00 16:00 00:00 Intake Total 1050 ml Output Total 1490 ml Balance -440 ml Result Diagram: 09/26/17 0552 09/26/17 0552 Other Results Laboratory Tests Test 09/25/17 14:15 09/25/17 14:18 09/25/17 14:25 09/25/17 18:00 White Blood Count 13.5 TH/MM3 Red Blood Count 4.18 MIL/MM3 Hemoglobin 13.5 GM/DL Hematocrit 40.0 % Mean Corpuscular Volume 95.8 FL Mean Corpuscular Hemoglobin 32.2 PG Mean Corpuscular Hemoglobin Concent 33.6 % Red Cell Distribution Width 13.0 % Platelet Count 316 TH/MM3 Mean Platelet Volume 7.5 FL Neutrophils (%) (Auto) 81.1 % Lymphocytes (%) (Auto) 12.3 % Monocytes (%) (Auto) 6.1 % Eosinophils (%) (Auto) 0.1 % Basophils (%) (Auto) 0.4 % Neutrophils # (Auto) 10.9 TH/MM3 Lymphocytes # (Auto) 1.7 TH/MM3 Monocytes # (Auto) 0.8 TH/MM3 Eosinophils # (Auto) 0.0 TH/MM3 Basophils # (Auto) 0.1 TH/MM3 CBC Comment AUTO DIFF Differential Total Cells Counted 100 Neutrophils % (Manual) 61 % Band Neutrophils % 24 % Lymphocytes % 11 % Monocytes % 4 % Neutrophils # (Manual) 11.5 TH/MM3 Differential Comment FINAL DIFF MANUAL Toxic Granulation 1+ Dohle Bodies PRESENT Platelet Estimate NORMAL Platelet Morphology Comment NORMAL Prothrombin Time 11.4 SEC Prothromb Time International Ratio 1.1 RATIO Activated Partial Thromboplast Time 25.2 SEC Blood Urea Nitrogen 49 MG/DL Creatinine 2.32 MG/DL Random Glucose 129 MG/DL Total Protein 7.4 GM/DL Albumin 3.1 GM/DL Calcium Level 8.5 MG/DL Phosphorus Level 3.3 MG/DL Magnesium Level 1.8 MG/DL Alkaline Phosphatase 59 U/L Aspartate Amino Transf (AST/SGOT) 15 U/L Alanine Aminotransferase (ALT/SGPT) 25 U/L Total Bilirubin 0.5 MG/DL Direct Bilirubin 0.1 MG/DL Sodium Level 135 MEQ/L Potassium Level 4.4 MEQ/L Chloride Level 106 MEQ/L Carbon Dioxide Level 18.3 MEQ/L Anion Gap 11 MEQ/L Estimat Glomerular Filtration Rate 28 ML/MIN Indirect Bilirubin 0.4 MG/DL Total Creatine Kinase 143 U/L Creatine Kinase MB 1.8 NG/ML Troponin I 0.02 NG/ML B-Type Natriuretic Peptide 18 PG/ML Lactic Acid Level 1.3 mmol/L Urine Color YELLOW Urine Turbidity HAZY Urine pH 5.0 Urine Specific [place] 1.013 Urine Protein TRACE mg/dL Urine Glucose (UA) NEG mg/dL Urine Ketones NEG mg/dL Urine Occult Blood NEG Urine Nitrite NEG Urine Bilirubin NEG Urine Urobilinogen LESS THAN 2.0 MG/DL Urine Leukocyte Esterase NEG Urine WBC 2 /hpf Urine Hyaline Casts 21 /lpf Urine Mucus FEW /lpf Microscopic Urinalysis Comment CATH-CULT NOT IND Nasal Screen MRSA (PCR) MRSA NOT DETECTED Test 09/26/17 05:52 White Blood Count 9.0 TH/MM3 Red Blood Count 3.33 MIL/MM3 Hemoglobin 11.1 GM/DL Hematocrit 31.4 % Mean Corpuscular Volume 94.5 FL Mean Corpuscular Hemoglobin 33.5 PG Mean Corpuscular Hemoglobin Concent 35.4 % Red Cell Distribution Width 13.1 % Platelet Count 229 TH/MM3 Mean Platelet Volume 7.1 FL Neutrophils (%) (Auto) 80.4 % Lymphocytes (%) (Auto) 16.0 % Monocytes (%) (Auto) 3.5 % Eosinophils (%) (Auto) 0.0 % Basophils (%) (Auto) 0.1 % Neutrophils # (Auto) 7.2 TH/MM3 Lymphocytes # (Auto) 1.4 TH/MM3 Monocytes # (Auto) 0.3 TH/MM3 Eosinophils # (Auto) 0.0 TH/MM3 Basophils # (Auto) 0.0 TH/MM3 CBC Comment DIFF FINAL Differential Comment Blood Urea Nitrogen 25 MG/DL Creatinine 0.82 MG/DL Random Glucose 128 MG/DL Total Protein 6.2 GM/DL Albumin 2.5 GM/DL Calcium Level 7.7 MG/DL Alkaline Phosphatase 45 U/L Aspartate Amino Transf (AST/SGOT) 12 U/L Alanine Aminotransferase (ALT/SGPT) 19 U/L Total Bilirubin 0.3 MG/DL Sodium Level 142 MEQ/L Potassium Level 4.0 MEQ/L Chloride Level 114 MEQ/L Carbon Dioxide Level 18.0 MEQ/L Anion Gap 10 MEQ/L Estimat Glomerular Filtration Rate 94 ML/MIN Imaging Last Impressions Chest CT 09/25/171614 Signed Impressions: Service Date/Time: Monday, September 25, 2017 16:30 - CONCLUSION: Moderate congestive failure. Kenneth Hightower MD FACR Abdomen/Pelvis CT 09/25/17 161 Signed Impressions: Service Date/Time: Monday, September 25, 2017 16:30 - CONCLUSION: 1. 1.8 cm renal mass probably cyst incompletely evaluated the exam. 2. Negative for stone or obstruction 3. I do not see an etiology for patient's abdominal pain Kenneth Hightower MD FACR Chest X-Ray 09/25/17 1407 Signed Impressions: Service Date/Time: Monday, September 25, 2017 14:33 - CONCLUSION: Mild compensated cardiomegaly Kenneth Hightower MD FACR Objective Remarks GENERAL: Well-nourished, well-developed patient. SKIN: Warm and dry. HEAD: Normocephalic. EYES: No scleral icterus. No injection or drainage. NECK: Supple, trachea midline. No JVD or lymphadenopathy. CARDIOVASCULAR: Regular rate and rhythm without murmurs, gallops, or rubs. RESPIRATORY: Breath sounds equal bilaterally. No accessory muscle use. GASTROINTESTINAL: Abdomen soft, non-tender, nondistended. MUSCULOSKELETAL: No cyanosis, or edema. BACK: Nontender without obvious deformity. NEURO EXAM: GCS: 15 Mental Status: The patient is alert and oriented to person, place, and time with normal speech. A/P Assessment and Plan 1)Resp Insuff 2)MIKE- improved 3)Hypotension- resolved 4)Dehydration 5)COPD 6)GERD 7) Hx Hypertension Plan Neuro: Awake and alert Pulm: Continue with oxygen keep sats >92% Bronchodilators CV: Monitor HR and BP keep MAP>65mmHg For 2D echo today, Lactic acid 1.3 : Monitor renal function, I/O's, electrolytes replacement as needed. Renal function is improving Cr:0.82 from 2.32. on NS@84ml/hr. CT abd/pelvis: 1.8 cm renal mass probably cyst incompletely evaluated the exam. Negative for stone or obstruction GI: On Pepcid for GI prophylaxis,, start PO heart healthy diet ID: Continue with abx ( Zosyn, Azithromycin) Given vanco as well in ED. Follow up on Blood, sputum and urine cxs. Influenza screening 09/25 negative Repeat CXR this morning showed no acute disease Heme: Monitor CBC Endo: Place on SSI for glycemic control DVT GI prophylaxis - Teds SCDs - Subcutaneous heparin - Pepcid Will sign off and transfer care to [facility] level 2 Felipe Ruiz MD Sep 26, 2017 08:15
[2017-09-26] MEDS: INSULIN NovoLIN REGULAR SUPPLEMENTAL SCALE SQ SCH ×3 (08:37→21:00)
[2017-09-26] MEDS: FAMOTIDINE 20 MG/2 ML VIAL IV PUSH SCH ×2 (08:38→20:03)
[2017-09-26] MEDS: RESP: ALBUTEROL 2.5 MG/IPRATROPIUM 0.5 MG NEB (SCH) NEB ×3 (08:54→20:44)
[2017-09-26] MEDS: AZITHROMYCIN INJ 250 MG in SODIUM CHLOR 0.9% 250 ML INJ 250 ML IV SCH (18:00)
--- NOTE | 2017-09-26 19:28 | EKG ---
Date Performed: 09/25/2017 Time Performed: 15:21:04 PTAGE: 67 years EKG: Sinus rhythm NORMAL ECG Since PREVIOUS TRACING , no significant change noted PREVIOUS TRACIN04/14/2013 16.04 DOCTOR: Cliff Bailon Interpretating Date/Time 09/26/2017 19:25:12
[2017-09-27] VITALS (24 sets, daily range): BP systolic 113–164; BP diastolic 67–93; PULSE 57–90; RESP 15–38; TEMP 98–98.6; O2SAT 95–100
[2017-09-27] MEDS: PIPERACIL-TAZO 3.375 GM PREMIX 50 ML IV SCH ×3 (00:31→17:48)
[2017-09-27] MEDS: INSULIN NovoLIN REGULAR SUPPLEMENTAL SCALE SQ SCH ×4 (03:00→20:44)
[2017-09-27] MEDS: RESP: ALBUTEROL 2.5 MG/IPRATROPIUM 0.5 MG NEB (SCH) NEB ×4 (03:58→22:00)
[2017-09-27] MEDS: CHLORHEXIDINE GLUCONATE 2 % 1 PACK (2 CLOTHS) TOP SCH (04:00)
[2017-09-27] MEDS: SODIUM CHLOR 0.9% 1000 ML INJ 1,000 ML IV SCH ×2 (06:23→18:19)
[2017-09-27] MEDS: HEPARIN SODIUM - SQ 10,000 UNITS/ML VIAL SQ SCH ×2 (06:24→18:41)
[2017-09-27 06:37] LABS: AUTOMATED NEUTROPHIL # 6.4 TH/MM3 (1.8-7.7); BASOPHIL % 0.2 % (0.0-2.0); EOSINOPHIL % 0.4 % (0.0-4.0); HEMATOCRIT 31.6 % (39.0-51.0); LYMPH % 29.2 % (9.0-44.0); LYMPHOCYTE # 2.9 TH/MM3 (1.0-4.8); MEAN CELL VOLUME 93.9 FL (80.0-100.0); MEAN CORPUSCULAR HEMOGLOBIN 32.7 PG (27.0-34.0); MEAN CORPUSCULAR HGB CONC 34.8 % (32.0-36.0); MEAN PLATELET VOLUME 7.2 FL (7.0-11.0); MONOCYTE # 0.5 TH/MM3 (0-0.9); NEUT % 65.2 % (16.0-70.0); PLATELET COUNT 200 TH/MM3 (150-450); RED BLOOD COUNT 3.36 MIL/MM3 (4.50-5.90); RED CELL DISTRIBUTION WIDTH 12.8 % (11.6-17.2); WHITE BLOOD COUNT 9.8 TH/MM3 (4.0-11.0)
[2017-09-27 07:07] LABS: BICARBONATE 20.9 MEQ/L (21.0-32.0); CALCIUM 8.3 MG/DL (8.5-10.1); CREATININE 0.82 MG/DL (0.60-1.30)
[2017-09-27 07:16] LABS: PHOSPHORUS 2.1 MG/DL (2.5-4.9)
[2017-09-27] MEDS: FAMOTIDINE 20 MG/2 ML VIAL IV PUSH SCH ×2 (09:04→20:44)
[2017-09-27] MEDS ORDERED: POTASSIUM CHLORIDE 25 MEQ EFFERVESCENT TAB PO PRN (10:15)
[2017-09-27] MEDS ORDERED: POTASSIUM PHOSPHATE MONOBASIC 500 MG TAB PO/TUBE PRN (10:15)
[2017-09-27] MEDS ORDERED: POTASSIUM PHOSPHATE INJ 30 MMOL in SODIUM CHLOR 0.9% 250 ML INJ 250 ML IV PRN (10:15)
[2017-09-27] MEDS ORDERED: SODIUM PHOSPHATE INJ 30 MMOL in SODIUM CHLOR 0.9% 250 ML INJ 240 ML IV PRN (10:15)
[2017-09-27] MEDS ORDERED: POTASSIUM CHLOR 40 MEQ PREMIX 100 ML IV PRN ×2 (10:15)
[2017-09-27] MEDS ORDERED: MAGNESIUM SULFATE INJ 2 GM in SODIUM CHLORIDE 0.9% INJ 96 ML IV PRN (10:15)
[2017-09-27] MEDS ORDERED: POTASSIUM CHLOR 20 MEQ PREMIX 100 ML IV PRN ×2 (10:15)
[2017-09-27] MEDS ORDERED: MAGNESIUM SULFATE INJ 4 GM in SODIUM CHLORIDE 0.9% INJ 92 ML IV PRN (10:15)
[2017-09-27] MEDS ORDERED: MAGNESIUM OXIDE 400 MG TAB PO PRN (10:15)
[2017-09-27] MEDS ORDERED: POTASSIUM PHOSPHATE MONOBASIC 500 MG TAB PO PRN (10:15)
--- NOTE | 2017-09-27 12:50 | HHI.PR ---
Subjective Remarks The patient denies chest pain. States breathing is much improved. A febrile. Objective Vitals Vital Signs Date Time Temp Pulse Resp B/P (MAP) Pulse Ox O2 Delivery O2 Flow Rate FiO2 09/27/17 12:00 98.0 64 16 119/71 (87) 97 09/27/17 12:00 64 09/27/17 11:00 72 142/67 (92) 97 09/27/17 10:00 68 09/27/17 10:00 68 22 131/79 (96) 95 09/27/17 09:00 70 25 137/73 (94) 97 09/27/17 08:22 100 Nasal Cannula 1.00 09/27/17 08:00 70 09/27/17 08:00 98.6 70 38 127/73 (91) 99 09/27/17 07:00 78 20 137/78 (97) 99 09/27/17 06:00 69 09/27/17 06:00 69 25 120/69 (86) 98 09/27/17 05:00 73 28 135/71 (92) 97 09/27/17 04:00 98.2 65 19 125/93 (104) 98 09/27/17 04:00 65 09/27/17 03:00 65 26 113/75 (88) 97 09/27/17 02:00 57 18 122/77 (92) 100 09/27/17 02:00 57 09/27/17 01:00 73 27 120/68 (85) 97 09/27/17 00:00 66 09/27/17 00:00 98.5 66 27 116/72 (87) 98 09/26/17 23:00 70 18 124/69 (87) 99 09/26/17 22:00 76 09/26/17 22:00 76 35 110/64 (79) 96 09/26/17 21:00 71 26 110/64 (79) 98 09/26/17 20:46 99 Nasal Cannula 2.00 09/26/17 20:00 75 09/26/17 20:00 97.7 75 29 117/67 (84) 98 09/26/17 19:00 77 26 133/66 (88) 96 09/26/17 18:00 70 23 111/66 (81) 98 09/26/17 18:00 70 09/26/17 17:00 85 19 117/69 (85) 98 09/26/17 16:00 98.7 70 17 118/64 (82) 99 09/26/17 16:00 70 09/26/17 15:00 68 20 113/64 98 09/26/17 14:00 60 09/26/17 14:00 60 20 104/61 (75) 97 09/26/17 13:00 88 35 113/69 (84) 98 I/O 09/26/17 09/26/17 09/26/17 09/27/17 09/27/17 09/27/17 07:00 15:00 23:00 07:00 15:00 23:00 Intake Total 1050 ml 50 ml 1730 ml 1050 ml Output Total 1490 ml 2150 ml 1340 ml Balance -440 ml 50 ml -420 ml -290 ml Intake Oral 480 ml IV Total 1050 ml 50 ml 1250 ml 1050 ml Output Urine Total 1490 ml 2150 ml 1340 ml # Bowel Movements 0 0 Result Diagram: 09/27/17 0435 09/27/17 0435 Imaging Last Impressions Chest X-Ray 09/26/17 0000 Signed Impressions: Service Date/Time: Tuesday, September 26, 2017 03:16 - CONCLUSION: Stable appearance with no acute cardiopulmonary disease. Jf Davis MD Chest CT 09/25/17 161 Signed Impressions: Service Date/Time: Monday, September 25, 2017 16:30 - CONCLUSION: Moderate congestive failure. Kenneth Hightower MD FACR Abdomen/Pelvis CT 09/25/17 161 Signed Impressions: Service Date/Time: Monday, September 25, 2017 16:30 - CONCLUSION: 1. 1.8 cm renal mass probably cyst incompletely evaluated the exam. 2. Negative for stone or obstruction 3. I do not see an etiology for patient's abdominal pain Kenneth Hightower MD FACR Objective Remarks AAOx3 nad S1S2 RRR clear lungs BL abdomen soft, nt no edema on lower extremities Medications and IVs Current Medications Medications (Trade) Dose Ordered Sig/Viviana Route Start Time Stop Time Status Last Admin Sodium Chloride 1,000 ml @ 84 mls/hr [id number] IV 09/25/17 18:00 09/27/17 06:23 (Pepcid Inj) 10 mg Q12HR IV PUSH 09/25/17 21:00 09/27/17 09:04 (Duoneb Neb) 1 ampule Q2HR NEB PRN INH 09/25/17 17:00 (Heparin Inj) 5,000 units Q12H SQ 09/25/17 18:00 09/27/17 06:24 Miscellaneous Information 1 [id number] XX 09/25/17 17:00 (Chlorhexidine 2% Cloth) 3 pack Taper DAILY@04 TOP 09/26/17 04:00 09/22/18 03:59 09/27/17 04:00 (Chlorhexidine 2% Cloth) 3 pack UNSCH PRN TOP 09/25/17 17:00 Piperacillin Sod/ Tazobactam Sod 50 ml @ 100 mls/hr Q8H IV 09/26/17 01:00 09/27/17 09:03 Azithromycin 250 mg/Sodium Chloride 250 ml @ 250 mls/hr Q24H IV 09/25/17 18:00 09/26/17 18:00 (D50w (Vial) Inj) 50 ml UNSCH PRN IV PUSH 09/26/17 08:15 (Glucagon Inj) 1 mg UNSCH PRN OTHER 09/26/17 08:15 (NovoLIN R SUPPLEMENTAL SCALE) 1 Q6H SQ 09/26/17 09:00 (Duoneb Neb) 1 ampule Q6HR NEB NEB 09/26/17 10:00 09/27/17 08:21 Potassium Chloride 100 ml @ 50 mls/hr Q2H PRN IV 09/27/17 10:15 Potassium Chloride 100 ml @ 50 mls/hr Q2H PRN IV 09/27/17 10:15 (K-Lyte Cl Eff) 50 meq UNSCH PRN PO 09/27/17 10:15 Potassium Chloride 100 ml @ 25 mls/hr UNSCH PRN IV 09/27/17 10:15 Potassium Chloride 100 ml @ 50 mls/hr Q2H PRN IV 09/27/17 10:15 Magnesium Sulfate 4 gm/Sodium Chloride 100 ml @ 50 mls/hr UNSCH PRN IV 09/27/17 10:15 (Mag-Ox) 800 mg UNSCH PRN PO 09/27/17 10:15 Magnesium Sulfate 2 gm/Sodium Chloride 100 ml @ 50 mls/hr UNSCH PRN IV 09/27/17 10:15 (K-Phos) 2,000 mg Q4H PRN PO 09/27/17 10:15 Sodium Phosphate 30 mmol/Sodium Chloride 250 ml @ 42 mls/hr UNSCH PRN IV 09/27/17 10:15 (K-Phos) 2,000 mg UNSCH PRN PO/TUBE 09/27/17 10:15 Potassium Phosphate 30 mmol/ Sodium Chloride 260 ml @ 42 mls/hr UNSCH PRN IV 09/27/17 10:15 09/27/17 13:07 A/P Problem List: (1) Sepsis ICD Code: A41.9 - Sepsis, unspecified organism Status: Acute Plan: Present on admission. Patient presented with leukocytosis and respiratory rate more than 20. Patient started IV vancomycin IV Zosyn Continue IV antibiotics, currently on IV Zosyn and IV azithromycin. Blood cultures negative 2. Sputum culture pending. Negative Legionella antigen, negative strep pneumonia antigen. (2) Acute respiratory failure ICD Code: J96.00 - Acute respiratory failure, unspecified whether with hypoxia or hypercapnia Plan: Now resolved. Patient initially admitted and managed by [employer] infrastructure consultant. Continue bronchodilators Continue supplemental oxygen to keep oxygen saturation more than 92%. IV antibiotics as above. Possibly due to COPD exacerbation with congestive heart failure since chest CT showed some moderate congestive heart failure. Check 2D echocardiogram. (3) MIKE (acute kidney injury) ICD Code: N17.9 - Acute kidney failure, unspecified Status: Resolved Plan: Creatinine elevated at 2.32 on admission. (4) Hyperchloremic metabolic acidosis ICD Code: E87.2 - Acidosis Status: Acute Plan: Of IV normal saline. Carbon dioxide slowly improving trending up now 20. Continue to monitor BMP. (5) Hypotension ICD Code: I95.9 - Hypotension, unspecified Status: Resolved Plan: Patient's blood pressure dropped down to the 60's systolic. Now resolved after multiple boluses of IV fluids. (6) COPD with exacerbation ICD Code: J44.1 - Chronic obstructive pulmonary disease with (acute) exacerbation Plan: Status post 1 dose of 125 mg IV of Solu-Medrol. COPD seems to be stable. Continue duo nebs and supplemental oxygen. (7) HTN (hypertension) ICD Code: I10 - Essential (primary) hypertension Plan: Blood pressure stable. The patient is on lisinopril 10 mg p.o. daily at home. Continue to hold home antihypertensive medications. (8) GERD (gastroesophageal reflux disease) ICD Code: K21.9 - Gastro-esophageal reflux disease without esophagitis Plan: On PPI. Assessment and Plan DVT prophylaxis: Heparin subcutaneously. GI prophylaxis: On PPI. Discharge Planning Possible discharge in a.m. Pending PT consult and 2D echocardiogram results. Problem Qualifiers (1) Sepsis: Qualified Codes: A41.9 - Sepsis, unspecified organism (2) Acute respiratory failure: Qualified Codes: J96.01 - Acute respiratory failure with hypoxia (3) Hypotension: Qualified Codes: I95.9 - Hypotension, unspecified (4) HTN (hypertension): Qualified Codes: I10 - Essential (primary) hypertension Ryan Adam MD Sep 27, 2017 12:50
[2017-09-27] MEDS: AZITHROMYCIN INJ 250 MG in SODIUM CHLOR 0.9% 250 ML INJ 250 ML IV SCH (18:59)
[2017-09-28] VITALS: BP 133/69; PULSE 63; RESP 16; TEMP 98.1; O2SAT 96
[2017-09-28 00:31] LABS: ALBUMIN 2.6 GM/DL (3.4-5.0); ALKALINE PHOSPHATASE 44 U/L (45-117); ALT (GPT) 22 U/L (12-78); AST (GOT) 12 U/L (15-37); BICARBONATE 23.6 MEQ/L (21.0-32.0); BLOOD UREA NITROGEN 10 MG/DL (7-18); CALCIUM 8.4 MG/DL (8.5-10.1); CHLORIDE 111 MEQ/L (98-107); CREATININE 0.66 MG/DL (0.60-1.30); GLOMERULAR FILTRATION RATE 120 ML/MIN (>89); GLUCOSE,RANDOM 90 MG/DL (74-106); MAGNESIUM 1.8 MG/DL (1.5-2.5); PHOSPHORUS 3.2 MG/DL (2.5-4.9); SODIUM (NA) 143 MEQ/L (136-145); TOTAL BILIRUBIN ADULT 0.3 MG/DL (0.2-1.0); TOTAL PROTEIN 6.2 GM/DL (6.4-8.2)
[2017-09-28] MEDS: PIPERACIL-TAZO 3.375 GM PREMIX 50 ML IV SCH ×2 (01:05→08:24)
[2017-09-28 02:00] VITALS: PULSE 60
[2017-09-28] MEDS: INSULIN NovoLIN REGULAR SUPPLEMENTAL SCALE SQ SCH ×2 (03:00→08:27)
[2017-09-28 04:00] VITALS: BP 129/70; PULSE 66; RESP 17; TEMP 98.7; O2SAT 96
[2017-09-28] MEDS: RESP: ALBUTEROL 2.5 MG/IPRATROPIUM 0.5 MG NEB (SCH) NEB ×2 (04:00→08:02)
[2017-09-28] MEDS: CHLORHEXIDINE GLUCONATE 2 % 1 PACK (2 CLOTHS) TOP SCH (04:00)
[2017-09-28 05:37] LABS: AUTOMATED NEUTROPHIL # 5.7 TH/MM3 (1.8-7.7); BASOPHIL % 0.2 % (0.0-2.0); EOSINOPHIL # 0.2 TH/MM3 (0-0.4); EOSINOPHIL % 2.5 % (0.0-4.0); HEMATOCRIT 30.4 % (39.0-51.0); HEMOGLOBIN 10.7 GM/DL (13.0-17.0); LYMPH % 27.7 % (9.0-44.0); LYMPHOCYTE # 2.5 TH/MM3 (1.0-4.8); MEAN CELL VOLUME 92.8 FL (80.0-100.0); MEAN CORPUSCULAR HEMOGLOBIN 32.7 PG (27.0-34.0); MEAN CORPUSCULAR HGB CONC 35.2 % (32.0-36.0); MEAN PLATELET VOLUME 7.4 FL (7.0-11.0); MONO % 5.4 % (0.0-8.0); MONOCYTE # 0.5 TH/MM3 (0-0.9); NEUT % 64.2 % (16.0-70.0); PLATELET COUNT 205 TH/MM3 (150-450); RED BLOOD COUNT 3.27 MIL/MM3 (4.50-5.90); RED CELL DISTRIBUTION WIDTH 12.6 % (11.6-17.2); WHITE BLOOD COUNT 8.9 TH/MM3 (4.0-11.0)
[2017-09-28] MEDS: SODIUM CHLOR 0.9% 1000 ML INJ 1,000 ML IV SCH (05:44)
[2017-09-28] MEDS: HEPARIN SODIUM - SQ 10,000 UNITS/ML VIAL SQ SCH (05:45)
[2017-09-28 06:00] VITALS: PULSE 61
[2017-09-28 08:00] VITALS: BP 144/81; PULSE 68; RESP 21; TEMP 98; O2SAT 99
[2017-09-28 08:03] VITALS: O2SAT 97
[2017-09-28] MEDS: FAMOTIDINE 20 MG/2 ML VIAL IV PUSH SCH (08:24)
== END 2017-09-28 14:05 | disposition left against medical advice (07) | DRG 871 ==
LOC: NEPC 13:27 → NEDA 17:03 → HIME 18:05
PROVIDERS: ADMIT Hospitalist; ATTEND Hospitalist
DX: A41.9 Sepsis, unspecified organism (principal); J96.00 Acute respiratory failure, unspecified whether with hypoxia or hypercapnia; N17.9 Acute kidney failure, unspecified; I95.9 Hypotension, unspecified; E87.2 Acidosis; J18.9 Pneumonia, unspecified organism; I50.9 Heart failure, unspecified; J44.0 Chronic obstructive pulmonary disease with (acute) lower respiratory infection; J44.1 Chronic obstructive pulmonary disease with (acute) exacerbation; J10.1 Influenza due to other identified influenza virus with other respiratory manifestations; E86.0 Dehydration; K21.9 Gastro-esophageal reflux disease without esophagitis; I10 Essential (primary) hypertension; Z87.891 Personal history of nicotine dependence
CPT/HCPCS: 71045; 71250; 74176; 80048; 80053; 80076; 81001; 82550; 82552; 82948; 83605; 83735; 83880; 84100; 84484; 85007; 85025; 85027; 85610; 85730; 87040; 87070; 87086; 87205; 87449; 87641; 87804; 93005; 94640; 94664; 96361; 96374; 96375; J0456; J1644; J2543; J2930; J3370; J7030; J7050

== ENCOUNTER 2018-03-30 06:41 | Inpatient (IN) ==
[2018-03-30] MEDS ORDERED: Bupivacaine/Epinephrine Inj 0.25% 50 ML Vial ONE (07:00)
[2018-03-30] MEDS ORDERED: Metoprolol Tartrate 25 MG Tablet PO ONE (07:15)
[2018-03-30] MEDS ORDERED: Chlorhexidine Gluconate 2% 1 Pack (2 Cloths) TOPICAL ONE (07:15)
[2018-03-30] MEDS ORDERED: Chlorhexidine 4% Topical 120 APPLIC/120 ML Bottle TOPICAL SCH (07:30)
[2018-03-30] MEDS ORDERED: Bupivacaine Liposomal PF 1.3% Inj 20 ML Vial ONE (07:37)
[2018-03-30] MEDS ORDERED: Famotidine PF Inj 20 MG/2 ML Vial ONE (07:55)
[2018-03-30] MEDS ORDERED: fentaNYL Citrate Inj 100 MCG/2 ML Ampul ONE (07:55)
[2018-03-30] MEDS ORDERED: Vancomycin Inj 1,000 MG in Sodium Chlor 0.9% Inj 250 ML IV.SIG SCH (08:00)
[2018-03-30] MEDS ORDERED: Sodium Chlor 0.9% Inj 40 ML, Bupivacaine Liposo PF 1.3% Inj 20 ML P-ARTICULR SCH ×2 (08:00)
[2018-03-30] MEDS ORDERED: ceFAZolin 2 GM Premix Inj 2 GM/50 ML PIGGYBACK IV.SIG SCH (08:00)
[2018-03-30] MEDS ORDERED: SODIUM CHLOR 0.9% IV.SIG SCH (08:00)
[2018-03-30] MEDS ORDERED: TRANEXAMIC ACID IV.SIG SCH (08:00)
[2018-03-30] MEDS ORDERED: Sodium Chlor 0.9% Inj 500 ML IV.SIG SCH (08:00)
[2018-03-30] MEDS ORDERED: Famotidine PF Inj 20 MG/2 ML Vial IV.PUSH ONE (08:30)
[2018-03-30] MEDS ORDERED: fentaNYL Citrate Inj 100 MCG/2 ML Ampul IV.PUSH ONE (08:30)
[2018-03-30] MEDS ORDERED: Ketorolac Inj 30 MG/ML (IVP) Vial IV.PUSH ONE (09:00)
[2018-03-30] MEDS ORDERED: Glycopyrrolate Inj 1 MG/5 ML Syringe IV.PUSH ONE (09:00)
[2018-03-30] MEDS ORDERED: Lidocaine PF 1% Inj 5 ML Syringe OTHER ONE (09:00)
[2018-03-30] MEDS ORDERED: Neostigmine Inj 5 MG/5 ML Syringe IV.PUSH ONE (09:00)
[2018-03-30] MEDS ORDERED: ALPRAZolam 0.5 MG Tablet PO PRN (10:53)
[2018-03-30] MEDS ORDERED: Bisacodyl 10 MG Supp RECTAL PRN (10:59)
[2018-03-30] MEDS ORDERED: Morphine Inj 4 MG/ML Vial IV.PUSH PRN (10:59)
[2018-03-30] MEDS ORDERED: Naloxone Inj 0.4 MG/ML Vial IV.PUSH PRN (10:59)
[2018-03-30] MEDS ORDERED: Post-op Orders (for Pharmacy) OTHER STA (10:59)
--- NOTE | 2018-03-30 11:07 | P.OP ---
- Preoperative Diagnosis (1) Osteoarthritis of right knee - Postoperative Diagnosis (1) Osteoarthritis of right knee Date of procedure: 03/30/18 Procedure: Right total knee replacement arthroplasty, kinematic retaining Anesthesia: GETA Surgeon: Joe Whaley MD Security And Compliance Project Manager: GERRI Thompson Operation and Findings: EBL: 100 cc INDICATION: This patient presents with long-standing arthritis of the knee. Attachment record documents conservative measures. The patient now presents for surgical treatment. NOTE: Angela Thompson PA-C was present for the entire surgical procedure as my family practice physician assistant. In my medical opinion her skill and care was necessary for proper management of this patient. TOURNIQUET TIME: 53 minutes COMPANY: [employer] FEMUR: Size 5, cruciate retaining TIBIA: Size 4, fixed-bearing PATELLA: 35 mm POLYETHYLENE INSERT: 10 mm, kinematic retaining PROCEDURE: This patient was brought the operating room and anesthetized in the supine position. The patient was positioned supine on the table. The tourniquet was placed about the thigh, and the leg was scrubbed with alcohol followed by Hibiclens followed by ChloraPrep and draped sterilely. A timeout was done, and antibiotics were given. After exsanguination the tourniquet was inflated to 250 mmHg. An anterior incision was made and a median parapatellar arthrotomy was performed. The patella was released laterally and subluxed allowing freehand cut of the patella which was then sized. A metal cap was placed over the exposed patellar surface for protection. A sdv pilot/navigator/dds operator hole was placed in the distal femur allowing a 5 valgus cut removing 10 mm from the distal femur. Anterior posterior and chamfer cuts were made. The posterior stabilize osteotomy was not made. The attention was directed to the tibia. Retractors were positioned. The external alignment guide was used allowing the lateral tibia to be used as referencing guide and cut utilizing an oscillating saw taking care to avoid any injury to the surrounding soft tissues. This was sized properly. Trial reduction showed that the insert fit nicely. The patient had range of motion extension 0 flexion 125. A medial release was not necessary. The bony surfaces prepared. On the back table 2 packets of methylmethacrylate were mixed. The components were cemented. Excess cement was removed. The tourniquet let down and hemostasis was controlled. The final plastic insert was inserted. Range of motion was the same as previously noted. A drain was brought through a separate stab incision. The arthrotomy was repaired with interrupted #1 Vicryl suture, subcutaneous tissue 2-0 Vicryl suture and skin with metallic ada A sterile dressing was applied. Sponge counts, needle counts and instrument counts were all correct. The patient tolerated procedure well and was taken to recovery in satisfactory condition. FINDINGS: There was severe erosive changes. There are some findings consistent with inflammatory arthropathy in addition to underlying osteoarthritis. Final solution appeared to be excellent. There was no complication that was appreciated.
--- NOTE | 2018-03-30 11:14 | P.DS ---
Date of admission: 03/30/18 06:41 Primary care physician: Jeff Patel MD Attending physician on discharge: Joe Whaley Anticipated date of discharge: 04/02/18 DS: Medications - Discharge Medications Prescriptions: aspirin 81 mg PO BID #60 tab oxycodone-acetaminophen 1 tab PO Q4H PRN #42 tab PRN Reason: Acute Pain DS: Summary Hospital Course: Surgical treatment was performed on the day of admission without complication. The patient recovered well in PACU and was transferred to the orthopedic floor. IV and oral medications were supplied. The patient was compliant with physical therapy and all precautions. After ___ days she was found to be stable and discharged to a ____. She was encouraged to continue physical therapy, to elevate the operative limb and ice it 2-3 times daily, and to pursue a high fiber diet. She was given prescriptions of [place] 7.5mg and ASA 81mg twice daily. - Time Spent with Patient Total time spent providing and/or coordinating discharge services: - Quality: VTE Deep Vein Thrombosis/Pulmonary Embolism Present on Admission: No Exam Vital signs: Vital Signs 03/30/18 07:33 Temperature 98.2 F Pulse Rate 70 Respiratory Rate 13 Blood Pressure 122/67 Pulse Oximetry 99 Intake & Output 03/29/18 03/30/18 03/30/18 18:59 06:59 18:59 Intake Total 1458.33 / 1458.33 Output Total 100 / 100 Balance 1358.33 / 1358.33 Weight 83.3 kg Intake: IV 1358.33 / 1358.33 LR 1000 mL Inj 1,000 ML @ 30 1000 / 1000 mls/hr IV.SIG .Q24H GRISELDA Rx#: [id number] Cyklokapron Inj 833 MG In NS 108.33 / 108.33 Inj 100 ML @ 200 mls/hr IV.SIG ONCE GRISELDA Rx#:[id number] Vancomycin Inj 1,000 MG In NS 250 / 250 Inj 250 ML @ 250 mls/hr IV.SIG [employer] GRISELDA Rx#:[id number] Anesthesia Amount 100 / 100 Output: Estimated Blood Loss 100 / 100 Other: Weight On Admission 83.3 kg Results Labs on day of discharge: Labs from last 24 hours 03/30/18 07:18 Blood Type B Positive Antibody Screen Negative MTS Gel Crossmatch See Detail Discharge Plan - Discharge Disposition Patient Disposition: 06 Disch W/Home Health Service - Discharge Condition Condition: Good - Discharge Order Discharge Orders: Discharge Order (Routine); Ordered 04/01/18 Ordered By: Joe Whaley - Discharge Details Anticipated Discharge Date: 04/02/18 - Physicians Team Primary Care Provider: Jeff Patel Attending Provider: Joe Whaley Other Providers: [facility],Agency ; [employer],Insurance - Rxs /Orders / Referrals /Forms Prescriptions: New aspirin 81 mg Tablet,Chewable 81 mg PO BID Qty: 60 RF: 0 oxycodone-acetaminophen 10-325 mg Tablet 1 tab PO Q4H PRN (Reason: Acute Pain) Qty: 42 RF: 0 Continue albuterol sulfate [ProAir HFA] 90 mcg/actuation Hfa Aerosol Inhaler 2 puff INHALATION Q4-6H PRN (Reason: Shortness Of Breath) alprazolam 0.5 mg Tablet 0.5 mg PO BID PRN (Reason: Anxiety) cyclobenzaprine 7.5 mg Tablet 7.5 mg PO TID fluticasone-salmeterol [Advair Diskus] 100-50 mcg/dose Blister With Device 1 puff INHALATION Q12H lisinopril 10 mg Tablet 10 mg PO DAILY oxycodone-acetaminophen 10-325 mg Tablet 1 tab PO Q4H PRN (Reason: Pain) prednisone 5 mg Tablet 5 mg PO DAILY No Action ferrous sulfate [Feosol] 325 mg (65 mg iron) Tablet 325 mg PO BID Qty: 60 RF: 0 sennosides-docusate sodium [Senna Plus] 8.6-50 mg Tablet 2 tab PO BID Qty: 120 RF: 0 Ambulatory Orders / Order Sets / DME: Adjustable Commode 3-in-1 (1 each) (Routine) Location: Determined by Patient Ordered By: Joe Whaley Walker With Front Wheels (1 each) (Routine) Location: Determined by Patient Ordered By: Joe Whaley Referrals: Jeff Patel MD [Primary Care Provider] - See Instructions - Discharge Instructions Patient Printed Instructions: Oxycodone/Acetaminophen (By mouth), Aspirin (By mouth), How to Choose and Use a Walker (GEN), Knee Replacement (DC) Additional Instructions: FOLLOW UP WITH DR. WHALEY SCHEDULED. IF YOU HAVE ANY QUESTIONS OR CONCERNS , CALL THE OFFICE. REPORT ANY SIGNS/SYMPTOMS OF INFECTION TO YOUR PROVIDER IMMEDIATELY. FOLLOW UP WITH YOUR PRIMARY CARE PROVIDER IN 3-7 DAYS. Full weight bearing Wear canvas knee splint at night for 4 weeks Faizan solorzano provided Follow up with Dr Whaley as directed - Post Discharge Care Plan Care Plan Goals: Discharge Care Plan Goals for Right Total Knee Replacement You have undergone knee replacement surgery. Your doctor replaced your painful joint with an artificial joint to relieve pain and restore movement. Here are some goals to help you heal well. Directions to Meet your Goals: 1. Activity & Exercises: * Take pain medicine as directed by your doctor. * Sit in chairs with arms. The arms make it easier for you to stand up or sit down. * Dont sit for more than 30 to 45 minutes at one time. * Nap if you are tired, but dont stay in bed all day. * Sleep with a pillow under your ankle, not your knee. Be sure to change the position of your leg during the night. * Wear the support stockings you were given in the hospital as directed by your surgeon. 2. Prevent Falls/Injury: The oliver to successful recovery is movement with walking and exercising your knee as directed by your doctor. * Arrange your household to keep the items you need handy. Keep everything else out of the way. * Remove items that may cause you to fall, such as throw rugs and electrical cords. * Use nonslip bath mats, grab bars, an elevated toilet seat, and a shower chair in your bathroom * Sit on a shower stool or chair when you shower to keep from falling. * Until your balance, flexibility, and strength improve, use a cane, crutches, a walker, handrails, or someone to help you. * Keep your hands free by using a backpack, barbi pack, apron, or pockets to carry things * Walk up and down stairs with support. Try one step at a time. Use the railing if possible. * Dont drive until your doctor says its OK. * Dont drive while you are taking opioid pain medicine. 3. Precautions: * Prevent infection. Any infection will need to be treated immediately. Call your doctor right away if you think you might have an infection. * Tell your dentist that you have an artificial joint and take antibiotics as prescribed before any dental work. * Tell all your healthcare providers about your artificial joint before any medical procedure. * Maintain a healthy weight. Get help to lose any extra pounds. Added body weight puts stress on the knee. * Your medications may include blood-thinning medicine to prevent blood clots or antibiotics to prevent infection-prevent any falls or cuts 4. Incision Care: * Prevent infection by washing your hands often. If an infection occurs, it will need to be treated right away. * Call your doctor right away if you think you may have an infection. Symptoms include a fever or an incision that leaks white, green, or yellow fluid. * Don't soak your incision in water until your doctor says its OK. This means no hot tubs, bathtubs, or swimming pools. * Follow your doctor's instructions for changing the dressing. Do not change your dressing until your first postoperative visit. * Dont rub the incision, or apply creams or lotions to it. * If you notice any redness or drainage around the bandage site, contact your surgeon's office immediately. 5. Follow-Up: Do Not miss your follow-up appointment. Keep up with all your appointments and yearly check ups When to call your doctor: Call your doctor right away if you have: Fever of 100.4F (38C) or higher, or as directed by your doctor Shaking chills Stiffness, or inability to move the knee Increased swelling in your leg Increased redness, tenderness, or swelling in or around the knee incision Drainage from the knee incision Increased knee pain Call 911: Call 911 right away if you have: Chest pain Shortness of breath Any pain or tenderness in your calf
[2018-03-30] MEDS ORDERED: Morphine Inj 30 MG/30 ML PCA.VIAL PCA ONE (11:36)
[2018-03-30] MEDS ORDERED: *morphine SULFATE 4 MG/ML PERIprocedure ONLY ONE ×2 (11:36→12:10)
[2018-03-30] MEDS: Morphine Inj 30 MG/30 ML PCA.VIAL PCA PRN (11:40)
--- NOTE | 2018-03-30 12:28 | XR ---
EXAM DATE: 03/30/2018 11:00 AM EDT AGE/SEX: 67 years / Male INDICATIONS: Post op right knee CLINICAL DATA: This is the patient's initial encounter. Patient reports that signs and symptoms have been present for 1 day and indicates a pain score of Nonresponsive. MEDICAL/SURGICAL HISTORY: None. . right knee replaced COMPARISON: No prior exams available for comparison. FINDINGS: Postoperative right total knee replacement. Skin ada anteriorly. Drain in soft tissues. There is also some air in the soft tissues. CONCLUSION: Postoperative total knee replacement. No complications identified. Electronically signed by: Otoniel Toledo MD 03/30/2018 12:27 PM EDT
[2018-03-30] MEDS: predniSONE 5 MG Tablet PO SCH (18:36)
[2018-03-30] MEDS: Senna/Docusate Sodium 8.6/50 MG Tablet PO SCH (20:00)
[2018-03-30] MEDS: Multivitamin/Minerals Therapeutic Tablet PO SCH (20:00)
[2018-03-30] MEDS: Budesonide-Formoterol 80/4.5 MCG 6.9 GM Inhaler INH SCH (20:01)
[2018-03-30] MEDS ORDERED: Temazepam 15 MG Capsule PO PRN (21:00)
[2018-03-31] MEDS: Morphine Inj 30 MG/30 ML PCA.VIAL PCA PRN (06:00)
[2018-03-31 07:40] LABS: Hematocrit 29.2 % (39.0-51.0); Hemoglobin 9.9 gm/dL (13.0-17.0)
[2018-03-31] MEDS: Senna/Docusate Sodium 8.6/50 MG Tablet PO SCH ×2 (08:57→20:04)
[2018-03-31] MEDS: Lisinopril 10 MG Tablet PO SCH (08:57)
[2018-03-31] MEDS: Budesonide-Formoterol 80/4.5 MCG 6.9 GM Inhaler INH SCH ×2 (08:57→20:04)
[2018-03-31] MEDS: predniSONE 5 MG Tablet PO SCH (08:57)
[2018-03-31] MEDS: Multivitamin/Minerals Therapeutic Tablet PO SCH ×2 (08:57→20:04)
[2018-03-31] MEDS: oxyCODONE/Acetaminophen 10/325 Tablet PO PRN ×2 (10:56→16:18)
[2018-04-01] MEDS: oxyCODONE/Acetaminophen 10/325 Tablet PO PRN ×4 (06:36→21:08)
[2018-04-01] MEDS: Multivitamin/Minerals Therapeutic Tablet PO SCH ×2 (08:41→21:08)
[2018-04-01] MEDS: Senna/Docusate Sodium 8.6/50 MG Tablet PO SCH ×2 (08:41→21:08)
[2018-04-01] MEDS: Lisinopril 10 MG Tablet PO SCH (08:41)
[2018-04-01] MEDS: Budesonide-Formoterol 80/4.5 MCG 6.9 GM Inhaler INH SCH ×2 (08:42→21:12)
[2018-04-01] MEDS: predniSONE 5 MG Tablet PO SCH (08:42)
--- NOTE | 2018-04-01 08:54 | P.DCO ---
- Physical Therapy Physical Therapy: Safety evaluation Knee: Total knee, Protocol: Right, Full weight bearing Canvas Knee Splint: Other Additional instructions: PT 4x/week for 2 weeks. WBAT Right LE. TKA protocol. Full ROM. CKS at night for 3-4 weeks. Walker assist as needed. - Nursing RN days per week: 3 x week(s): 1 Dressing changes: Do not change dressing Additional instructions: Vitals assessment. Dressing assessment - do not change unless saturated or erythema. - Certification Need for Home Health services: I have seen patient Jeff Suarez on 04/01/18. My clinical findings support the need for the requested home health care services because: Need for Home Health Services: Deconditioned with increased weakness, High risk of falls Homebound Certification: I certify that my clinical findings support that this patient is homebound because: Homebound Certification: Post-op weakness, Unsteady gait/balance
--- NOTE | 2018-04-01 08:59 | P.PNOP ---
Subjective Interval history: He is doing better compared to yesterday. After our discussion yesterday he still would like to discharge home. Pain is moderately controlled on PO meds. No new leg pain. He accepts that he will need to have one of his neighbors check on him since his significant other only checks on him in the evenings. Physical Exam Vital signs: Vital Signs 03/31/18 11:48 03/31/18 16:09 03/31/18 20:00 Temperature 98.8 F 98.3 F 98.4 F Pulse Rate 107 H 88 89 Respiratory Rate 18 17 17 Blood Pressure 144/80 H 121/71 118/67 Pulse Oximetry 92 L 93 L 94 L 04/01/18 08:24 Temperature 99.2 F Pulse Rate 118 H Respiratory Rate 17 Blood Pressure 112/70 Pulse Oximetry 92 L Intake & Output 03/31/18 04/01/18 04/01/18 18:59 06:59 18:59 Intake Total 1810 / 1810 150 / 150 Output Total 50 / 50 Balance 1760 / 1760 150 / 150 Intake: IV 850 / 850 150 / 150 LR 1000 mL Inj 1,000 ML @ 80 850 / 850 150 / 150 mls/hr IV.CONT .[id number] GRISELDA Rx# :[id number] Oral 960 / 960 Output: Wound Drainage 50 / 50 Right Knee Hemovac 50 / 50 Other: # Voids 3 4 Date of Last Bowel Movement 03/31/18 04/01/18 # Bowel Movements 1 Narrative: Sitting up in bed NAD VSS RLE Right knee dressing c/d/i, drain removed, mild swelling and warmth, no erythema +motor at distal, +sens, +nvi neg homans - Constitutional no acute distress Results - Labs CBC & Chem 7: 03/31/18 07:00 - Procedures Right total knee replacement Assessment and Plan - Ortho Post Op Day # 1 - Assessment and Plan pod#1 s/p R TKA Doing better today. Pain controlled despite narcotics history. Ok to d/c home today after PT if his therapist believes he has achieved independent function with a reasonable amount of safety. PO pain meds as needed. Hold dressing changes unless saturated. PT - WBAT. FUll ROM. CKS when in bed for 3 weeks. TKA protocol. ASA 81mg. F/U in 2 weeks as scheduled.
[2018-04-02] MEDS: oxyCODONE/Acetaminophen 10/325 Tablet PO PRN ×2 (04:03→08:09)
--- NOTE | 2018-04-02 07:44 | P.PNOP ---
Subjective Interval history: Doing better today. Becoming more independent. Ready for discharge Physical Exam Vital signs: Vital Signs 04/01/18 08:24 04/01/18 11:07 04/01/18 12:47 Temperature 99.2 F 98.1 F Pulse Rate 118 H 117 H Respiratory Rate 17 18 18 Blood Pressure 112/70 123/69 Pulse Oximetry 92 L 93 L 04/01/18 16:00 04/01/18 17:32 04/01/18 20:00 Temperature 97.9 F 99.0 F Pulse Rate 111 H 103 H Respiratory Rate 20 18 17 Blood Pressure 114/61 120/55 L Pulse Oximetry 94 L 95 04/01/18 21:38 04/01/18 23:00 04/02/18 00:00 Temperature 98.2 F Pulse Rate 109 H Respiratory Rate 18 18 18 Blood Pressure 114/66 Pulse Oximetry 94 L 04/02/18 03:00 Temperature Pulse Rate Respiratory Rate 18 Blood Pressure Pulse Oximetry Intake & Output 04/01/18 04/02/18 04/02/18 18:59 06:59 18:59 Intake Total 1350 / 1350 Output Total 400 / 400 Balance 950 / 950 Intake: Oral 1350 / 1350 Output: Urine 400 / 400 Other: # Voids 5 4 Date of Last Bowel Movement 04/01/18 04/01/18 # Bowel Movements 2 Narrative: Sitting up in bed NAD VSS RLE Right knee dressing c/d/i, drain removed, mild swelling and warmth, no erythema +motor at distal, +sens, +nvi neg homans Results - Labs CBC & Chem 7: 03/31/18 07:00 Laboratory Results - last 24 hr 03/30/18 07:18 MTS Gel Crossmatch See Detail - Procedures Right total knee replacement Assessment and Plan - Assessment and Plan pod#3 s/p R TKA Doing better today. Ok to d/c home today PO pain meds as needed. Hold dressing changes unless saturated. PT - WBAT. FUll ROM. CKS when in bed for 3 weeks. TKA protocol. ASA 81mg. F/U in 2 weeks as scheduled.
[2018-04-02] MEDS: Multivitamin/Minerals Therapeutic Tablet PO SCH (08:08)
[2018-04-02] MEDS: Senna/Docusate Sodium 8.6/50 MG Tablet PO SCH (08:09)
[2018-04-02] MEDS: Lisinopril 10 MG Tablet PO SCH (08:09)
[2018-04-02] MEDS: Budesonide-Formoterol 80/4.5 MCG 6.9 GM Inhaler INH SCH (08:10)
[2018-04-02] MEDS: predniSONE 5 MG Tablet PO SCH (08:10)
[2018-04-02 08:43] VITALS: BP 114/76; PULSE 123; TEMP 97.5; O2SAT 96
[2018-04-02 09:35] VITALS: RESP 18
== END 2018-04-02 10:37 | disposition home health service (06) ==
LOC: EDBD → HSDI 06:41 → N06 14:56
PROVIDERS: ADMIT Orthopaedic Surgery Orthopaedic Surgery of the Spine; ATTEND Orthopaedic Surgery Orthopaedic Surgery of the Spine

== ENCOUNTER 2018-04-03 13:11 | Inpatient (IN) ==
--- NOTE | 2018-04-03 15:05 | XR ---
EXAM DATE: 04/03/2018 12:00 AM EDT AGE/SEX: 67 years / Male INDICATIONS: Right knee pain and swelling. Post total knee days ago. CLINICAL DATA: This is the patient's subsequent encounter. Patient reports that signs and symptoms h ave been present for 3 days and indicates a pain score of 7/10. MEDICAL/SURGICAL HISTORY: Arthritis. Total knee replacement, right. [place] [facility] [place]. . FINDINGS: The patient is post right knee arthroplasty. Orthopedic hardware is in excellent position. The exam i s stable compared to prior dated 03/30/2018. CONCLUSION: Orthopedic hardware in excellent position. Stable postoperative knee. Electronically signed by: Master Hightower MD 04/03/2018 3:04 PM EDT
[2018-04-03 16:01] LABS: Calcium 9.6 mg/dL (8.5-10.1); Potassium 5.1 meq/L (3.5-5.1)
[2018-04-03 16:18] LABS: Baso % (Auto) 0.4 % (0.0-2.0); Eos # (Auto) 0.2 th/mm3 (0.0-0.4); Eos % (Auto) 1.6 % (0.0-4.0); Hematocrit 29.6 % (39.0-51.0); Lymph # (Auto) 2.1 th/mm3 (1.0-4.8); Lymph % (Auto) 18.1 % (9.0-44.0); Mean Corpuscular HGB Conc 33.8 % (32.0-36.0); Mean Corpuscular Hemoglobin 30.8 pg (27.0-34.0); Mean Corpuscular Volume 91.2 fL (80.0-100.0); Mono # (Auto) 0.8 th/mm3 (0.0-0.9); Mono % (Auto) 6.6 % (0.0-8.0); Neut # (Auto) 8.5 th/mm3 (1.8-7.7); Neut % (Auto) 73.3 % (16.0-70.0); Platelet Count 327 th/mm3 (150-450); Red Blood Count 3.25 mil/mm3 (4.50-5.90); Red Cell Distribution Width 14.7 % (11.6-17.2); White Blood Count 11.7 th/mm3 (4.0-11.0)
[2018-04-03] MEDS ORDERED: ceFAZolin 2 GM Premix Inj 2 GM/50 ML PIGGYBACK IV.SIG ONE (16:49)
[2018-04-03] MEDS ORDERED: Bisacodyl 10 MG Supp RECTAL PRN (17:12)
[2018-04-03] MEDS ORDERED: Acetaminophen 325 MG Tablet PO PRN (17:12)
[2018-04-03] MEDS ORDERED: Sod Chloride 0.9% Inj 1,000 ML IV.SIG SCH (17:15)
--- NOTE | 2018-04-03 17:45 | XR ---
EXAM DATE: 04/03/2018 12:00 AM EDT AGE/SEX: 67 years / Male INDICATIONS: COPD. Short of breath. CLINICAL DATA: This is the patient's initial encounter. Patient reports that signs and symptoms have been present for 1 day and indicates a pain score of 4/10. MEDICAL/SURGICAL HISTORY: Chronic obstructive pulmonary disease. Total knee replacement, right. COMPARISON: [facility] [place], 09/26/[place]. . FINDINGS: A single AP view of the chest demonstrates the lungs to be symmetrically aerated without evidence of mass, infiltrate or effusion. The cardiomediastinal contours are unremarkable. Osseous structures a re intact. CONCLUSION: The lungs are clear. Electronically signed by: Julito Sawyer MD 04/03/2018 5:44 PM EDT
--- NOTE | 2018-04-03 17:57 | P.HP ---
History of Present Illness Service: Hospitalist Primary Care Physician: Jeff Patel MD Chief Complaint: no urine History of Present Illness: Patient is a 67-year-old male with a past medical history of hypertension, BPH, rheumatoid arthritis, COPD and chronic knee pain (status post right total knee done 03/30/2018; discharged home on 04/02/18) who presents with a complaint of being unable to urinate. He tells me that his urine has been very dark and he is only able to produce a small amount at a time. He does have a history of BPH. Denies any history of kidney pain or kidney stones. He is not experiencing any back or flank pain. He is also complaining of reduced appetite but tells me that he is hungry right now. No nausea vomiting or diarrhea. No chest pain or shortness of breath. He does have some wheeze on exam but he tells me this is because he has not had his inhaler. - Diagnosis (1) MIKE (acute kidney injury) (2) COPD (chronic obstructive pulmonary disease) (3) Hypertension (4) Hyponatremia (5) Anemia Inpatient Certification: I certify that the inpatient services were ordered in accordance with Medicare regulations governing the order. This includes certification that hospital inpatient services are reasonable and necessary and in the case of services not specified as inpatient-only under 42 CFR 419.22(n), that they are appropriately provided as inpatient services in accordance to with the 2-midnight benchmark under 43 CFR 412.3(e) Estimated Total Length of Stay (Days): 2 Plans for Post Hospital Care: Not yet determined Review of Systems All other systems reviewed negative except as stated in [facility] - History History Provided By: Patient, Medical Record - Medical History Medical History: Medical History (Last Reviewed 04/03/18 @ 17:45 by STEPH Katz) BPH (benign prostatic hyperplasia) Anxiety Arthritis COPD (chronic obstructive pulmonary disease) Full dentures Gout Hypertension Knee pain, right Rheumatoid arthritis - Surgical History Surgical History: Surgical History (Last Reviewed 04/03/18 @ 17:45 by STEPH Katz) Total knee replacement status H/O umbilical hernia repair History of gastric surgery History of nasal surgery - Family History Family History: Family History (Last Reviewed 04/03/18 @ 17:45 by STEPH Katz) Brother Cancer Sister Cancer Father Heart attack Mother CHF (congestive heart failure) - Social History I have reviewed the patient's Social History: Yes - Tobacco History Second Hand Smoke Exposure: No Tobacco Use In Past 30 Days: No Smoking Status: Former smoker Tobacco Type: Cigarettes - Alcohol History How Often Do You Have a Drink Containing Alcohol: Monthly or less - Substance Use History Substance History: No History of Abuse - Travel History History of Recent Travel: No - Immunization History Tetanus Immunization: <5 Years Hx Influenza Vaccine This Season: No Medications and Allergies Active Medications: Active Medications Acetaminophen (Tylenol) 650 mg PO Q4H PRN PRN Reason: Temp > 100.4 Al Hydroxide/Mg Hydroxide (Milk Of Magnesia Liq) 30 ml PO Q12H PRN PRN Reason: Mild Constipation Albuterol (Ventolin Hfa Inh) 2 puff INH Q4-6H PRN PRN Reason: Shortness Of Breath Bisacodyl (Dulcolax Supp) 10 mg RECTAL DAILY PRN PRN Reason: SEVERE CONSITIPATION Sodium Chloride (Ns Inj) 1,000 mls @ 0 mls/hr IV.SIG BOLUS GRISELDA Lactulose (Lactulose Liq) 30 ml PO DAILY PRN PRN Reason: SEVERE CONSITIPATION Non-Formulary Medication (Fluticasone-Salmeterol [Advair Diskus]) 1 puff INHALATION Q12H GRISELDA Prednisone (Deltasone) 5 mg PO DAILY GRISELDA Senna/Docusate Sodium (Ailyn-Colace) 1 tab PO BID GRISELDA Sennosides (Senokot) 17.2 mg PO Q12H PRN PRN Reason: Moderate Constipation Allergies Allergy/AdvReac Type Severity Reaction Status Date / Time No Known Allergies Allergy Verified 03/30/18 07:26 Home Medications Medication Instructions Recorded Confirmed Type albuterol sulfate [ProAir HFA] 2 puff INHALATION Q4-6H PRN 03/25/18 04/03/18 History alprazolam 0.5 mg PO BID PRN 03/25/18 04/03/18 History cyclobenzaprine 7.5 mg PO TID 03/25/18 04/03/18 History fluticasone-salmeterol [Advair 1 puff INHALATION Q12H 03/25/18 04/03/18 History Diskus] lisinopril 10 mg PO DAILY 03/25/18 04/03/18 History oxycodone-acetaminophen 1 tab PO Q4H PRN 03/25/18 04/03/18 History prednisone 5 mg PO DAILY 03/25/18 04/03/18 History Exam Vital signs: Vital Signs 04/03/18 13:33 04/03/18 13:38 04/03/18 15:25 Temperature 98.1 F 98.1 F Pulse Rate 96 H 96 H 95 H Respiratory Rate 24 20 12 Blood Pressure 97/54 L 97/54 L 111/59 L Pulse Oximetry 95 98 100 Intake & Output 04/02/18 04/03/18 04/03/18 18:59 06:59 18:59 Weight 75.825 kg Narrative: GENERAL: Well-nourished, well-developed adult male in no obvious distress. SKIN: Focused-warm and dry. HEAD: Atraumatic. Normocephalic. CARDIOVASCULAR: Regular rate and rhythm. RESPIRATORY: No accessory muscle use. Wheeze. Breath sounds equal bilaterally. GASTROINTESTINAL: Abdomen soft, non-tender, distended/rounded. Positive bowel sounds. MUSCULOSKELETAL: Extremities without clubbing, cyanosis, or edema. No obvious deformities. Right knee has surgical dressing in place. No significant erythema or swelling in knee. No calf swelling or tenderness bilaterally. NEUROLOGICAL: Awake and alert. No obvious cranial nerve deficits. Motor grossly within normal limits. Normal speech. PSYCHIATRIC: Appropriate mood and affect; insight and judgment good. Results - Labs CBC & Chem 7: 04/03/18 16:15 04/03/18 14:30 Labs: Laboratory Results - last 24 hr 04/03/18 04/03/18 14:30 16:15 WBC 11.7 H RBC 3.25 L Hgb 10.0 L Hct 29.6 L MCV 91.2 MCH 30.8 MCHC 33.8 RDW 14.7 Plt Count 327 MPV 7.0 Neut % (Auto) 73.3 H Lymph % (Auto) 18.1 [place] % (Auto) 6.6 Eos % (Auto) 1.6 Baso % (Auto) 0.4 Neut # (Auto) 8.5 H Lymph # (Auto) 2.1 [place] # (Auto) 0.8 Eos # (Auto) 0.2 Baso # (Auto) 0.0 WBC Differential . Differential Comment Auto diff final Sodium 133 L Potassium 5.1 Chloride 97 L Carbon Dioxide 21.0 Anion Gap 15 BUN 59 H Creatinine 3.97 H Estimated GFR 15 L Random Glucose 101 Calcium 9.6 - Imaging Impressions Knee X-Ray 04/03/18 00:00 CONCLUSION: Orthopedic hardware in excellent position. Stable postoperative knee. Caprini VTE Risk Assessment Caprini VTE Risk Assessment: Moderate/High Risk (score >= 2) Caprini Risk Assessment Model: Point Value = 1 Point Value = 2 Point Value = 3 Point Value = 5 Age 41-60 Minor surgery BMI > 25 kg/m2 Swollen legs Varicose veins or History of unexplained or recurrent spontaneous Oral contraceptives or hormone replacement Sepsis (< 1 month) Serious lung disease, including pneumonia (< 1 month) Abnormal pulmonary function Acute myocardial infarction Congestive heart failure (< 1 month) History of inflammatory bowel disease Medical patient at bed rest Age 61-74 Arthroscopic surgery Major open surgery (> 45 min) Laparoscopic surgery (> 45 min) Malignancy Confined to bed (> 72 hours) Immobilizing plaster cast Central venous access Age >= 75 History of VTE Family history of VTE Factor V Leiden Prothrombin [id number] Lupus anticoagulant Anticardiolipin antibodies Elevated serum homocysteine Heparin-induced thrombocytopenia Other congenital or acquired thrombophilia Stroke (< 1 month) Elective arthroplasty Hip, pelvis, or leg fracture Acute spinal cord injury (< 1 month) Prophylaxis Regimen: Total Risk Factor Score Risk Level Prophylaxis Regimen 0-1 Low Early ambulation 2 Moderate Order ONE of the following: *Sequential Compression Device (SCD) *Heparin 5000 units SQ BID 3-4 Higher Order ONE of the following medications: *Heparin 5000 units SQ TID *Enoxaparin/Lovenox 40 mg SQ daily (WT < 150 kg, CrCl > 30 mL/min) *Enoxaparin/Lovenox 30 mg SQ daily (WT < 150 kg, CrCl > 10-29 mL/min) *Enoxaparin/Lovenox 30 mg SQ BID (WT < 150 kg, CrCl > 30 mL/min) AND/OR *Sequential Compression Device (SCD) 5 or more Highest Order ONE of the following medications: *Heparin 5000 units SQ TID (Preferred with Epidurals) *Enoxaparin/Lovenox 40 mg SQ daily (WT < 150 kg, CrCl > 30 mL/min) *Enoxaparin/Lovenox 30 mg SQ daily (WT < 150 kg, CrCl > 10-29 mL/min) *Enoxaparin/Lovenox 30 mg SQ BID (WT < 150 kg, CrCl > 30 mL/min) AND *Sequential Compression Device (SCD) Assessment and Plan - Assessment (1) MIKE (acute kidney injury) Code(s): N17.9 - Acute kidney failure, unspecified Status: Acute (2) COPD (chronic obstructive pulmonary disease) Code(s): J44.9 - Chronic obstructive pulmonary disease, unspecified Status: Chronic (3) Hypertension Code(s): I10 - Essential (primary) hypertension Status: Chronic (4) Hyponatremia Code(s): E87.1 - Hypo-osmolality and hyponatremia Status: Acute (5) Anemia Code(s): D64.9 - Anemia, unspecified Status: Acute - Plan Patient is a 67-year-old male with a past medical history of hypertension, BPH, rheumatoid arthritis, COPD and chronic knee pain (status post right total knee done 03/30/2018; discharged home on 04/02/18) who presents with a complaint of being unable to urinate. MIKE; acute -Previously normal kidney function; unsure of cause -Bolused 1 L NS in ED -NS at 100 mL's per hour; monitor kidney function -Monitor I&O Hyponatremia; acute -Previously normal; likely related to kidney injury -Will likely improved with IVF; monitor Anemia; acute -Likely postsurgical; monitor COPD; chronic -Restart home medications -Wheeze on exam; x-ray ordered Hypertension; chronic -Hold home lisinopril due to acute kidney injury Knee pain -Status post total right knee. Pain medication ordered. DVT prophylaxis: Teds Discussed with: Nurse, PT, Dr. Rg Discharge planning: Will need PT eval due to recent knee surgery. Likely Rehab or home with home health depending on progress. -[employer] Prescription Drug Monitoring Database has been queried and verified prior to prescribing the controlled substance. Acute pain exception: This patient has normal, predicted, physiological, and time limited response to an adverse mechanical stimulus associated with surgery , trauma, or acute illness as described in my notes. There is a lack of alternative treatment options other than to include the prescribed narcotic treatment for this condition.
--- NOTE | 2018-04-03 18:04 | ED ---
HPI General Chief Complaint: Extremity Injury, Lower Stated Complaint: Medical Time Seen by Provider: 04/03/18 13:37 Source: patient Mode of arrival: ambulatory Limitations: no limitations History of Present Illness HPI Narrative: 67-year-old male arrives to the ED due to right knee pain. He underwent right total knee arthroplasty about [address] Cruz. He reports leaving early however read the discharge summary looked as though it was an appropriate discharge. The patient arrives due to right knee pain. He states he is unable to stand on it with a walker. Prior to discharge she was able to stand on it with a walker. He reports some constipation. Positive flatus. He reports decreased urination overall with some hesitancy. Appetite is decreased generally. MD complaint: knee injury Onset (ago): day(s) (1) Type of Injury: other (Postop right knee pain) Severity: moderate Relieving factors: rest Exacerbating factors: movement and palpation Related Data Home Medications Medication Instructions Recorded Confirmed albuterol sulfate [ProAir HFA] 2 puff INHALATION Q4-6H PRN 03/25/18 04/03/18 alprazolam 0.5 mg PO BID PRN 03/25/18 04/03/18 cyclobenzaprine 7.5 mg PO TID 03/25/18 04/03/18 fluticasone-salmeterol [Advair 1 puff INHALATION Q12H 03/25/18 04/03/18 Diskus] lisinopril 10 mg PO DAILY 03/25/18 04/03/18 oxycodone-acetaminophen 1 tab PO Q4H PRN 03/25/18 04/03/18 prednisone 5 mg PO DAILY 03/25/18 04/03/18 Previous Rx's Medication Instructions Recorded aspirin 81 mg PO BID #60 tab 03/30/18 oxycodone-acetaminophen 1 tab PO Q4H PRN #42 tab 03/30/18 Allergies Allergy/AdvReac Type Severity Reaction Status Date / Time No Known Allergies Allergy Verified 03/30/18 07:26 Review of Systems ROS: all other systems reviewed are negative [facility] Social History Social History Substance History: No History of Abuse Second Hand Smoke Exposure: No Smoking Status: Former smoker Tobacco Type: Cigarettes How Often Do You Have a Drink Containing Alcohol: Monthly or less Hx Recent Travel: No Immunization History Tetanus Immunization: <5 Years Hx Influenza Vaccine This Season: No Exam Narrative Exam Narrative: GENERAL: 67-year-old male pleasant mildly anxious no acute distress SKIN: Focused skin assessment warm/dry. HEAD: Atraumatic. Normocephalic. EYES: Pupils equal and round. No scleral icterus. No injection or drainage. ENT: No nasal bleeding or discharge. Mucous membranes pink and moist. NECK: Trachea midline. No JVD. CARDIOVASCULAR: Regular rate and rhythm. No murmur appreciated. RESPIRATORY: No accessory muscle use. Clear to auscultation. Breath sounds equal bilaterally. GASTROINTESTINAL: Soft. No focal tenderness to percussion. MUSCULOSKELETAL: There is minimal tenderness about the right knee with trace erythema. The surgical incision is well approximated without discharge or bleed. Overall the appearance appears appropriate for approximately 3 days postop. There is a nontender flexion-extension/range of motion of the right knee on passive exam. Active exam of the right knee range of motion is somewhat limited due to pain. There is no significant swelling distal right lower extremity. NEUROLOGICAL: Awake and alert. No obvious cranial nerve deficits. Motor grossly within normal limits. Normal speech. PSYCHIATRIC: Appropriate mood and affect; insight and judgment normal. Course Initial Documented Vital Signs Temperature 98.1 F 04/03/18 13:33 Pulse Rate 96 H 04/03/18 13:33 Respiratory Rate 24 04/03/18 13:33 Blood Pressure 97/54 L 04/03/18 13:33 Pulse Oximetry 95 04/03/18 13:33 Last Documented Vital Signs Temperature 98.1 F 04/03/18 13:38 Pulse Rate 95 H 04/03/18 15:25 Respiratory Rate 12 04/03/18 15:25 Blood Pressure 111/59 L 04/03/18 15:25 Pulse Oximetry 100 04/03/18 15:25 Medical Decision Making [facility] Narrative Medical decision making narrative: Patient has acute kidney injury, and unexpected result. IV fluids started. The patient is admitted for acute kidney injury and not for the right knee however there is trace swelling and erythema. Call was placed to PA for the orthopedics group who agreed that Ancef is not unreasonable and [address] Whaley is rounding for the service and will be able to see the patient tomorrow. I do not believe the patient has septic arthritis or a significant complication related to the surgery at this time. Case discussed with hospitalist, Dr. Robertson. Medical Screen Exam Complete: Yes Emergency Medical Condition: Yes Differential Diagnosis Differential Diagnosis: Cellulitis, septic arthritis, constipation, dehydration , side effect Percocet Medical Records Medical records reviewed: Yes I reviewed the patient's medical records. Lab Data Lab results reviewed: Yes I reviewed the patient's lab results. Lab results narrative: Patient has new onset renal insufficiency Result diagrams: 04/03/18 16:15 04/03/18 14:30 Lab Results 04/03/18 04/03/18 Range/Units 14:30 16:15 WBC 11.7 H (4.0-11.0) th/mm3 RBC 3.25 L (4.50-5.90) mil/mm3 Hgb 10.0 L (13.0-17.0) gm/dL Hct 29.6 L (39.0-51.0) % MCV 91.2 (80.0-100.0) fL MCH 30.8 (27.0-34.0) pg MCHC 33.8 (32.0-36.0) % RDW 14.7 (11.6-17.2) % Plt Count 327 (150-450) th/mm3 MPV 7.0 (7.0-11.0) fL Neut % (Auto) 73.3 H (16.0-70.0) % Lymph % (Auto) 18.1 (9.0-44.0) % [place] % (Auto) 6.6 (0.0-8.0) % Eos % (Auto) 1.6 (0.0-4.0) % Baso % (Auto) 0.4 (0.0-2.0) % Neut # (Auto) 8.5 H (1.8-7.7) th/mm3 Lymph # (Auto) 2.1 (1.0-4.8) th/mm3 [place] # (Auto) 0.8 (0.0-0.9) th/mm3 Eos # (Auto) 0.2 (0.0-0.4) th/mm3 Baso # (Auto) 0.0 (0.0-0.2) th/mm3 WBC Differential . Differential Comment Auto diff final Sodium 133 L (136-145) meq/L Potassium 5.1 (3.5-5.1) meq/L Chloride 97 L (98-107) meq/L Carbon Dioxide 21.0 (21.0-32.0) meq/L Anion Gap 15 (5-15) meq/L BUN 59 H (7-18) mg/dL Creatinine 3.97 H (0.60-1.30) mg/dL Estimated GFR 15 L (>89) mL/min Random Glucose 101 (74-106) mg/dL Calcium 9.6 (8.5-10.1) mg/dL Imaging Data Attestation: I personally reviewed and interpreted this imaging study as follows : Radiologist's impression: Chest X-Ray 04/03/18 00:00 CONCLUSION: The lungs are clear. Knee X-Ray 04/03/18 00:00 CONCLUSION: Orthopedic hardware in excellent position. Stable postoperative knee. Discharge Plan Discharge Disposition Patient Disposition: 30 Still Patient Physicians Team ED Provider: Master Rg Primary Care Provider: Jeff Patel Attending Provider: Lexi Robertson Discharge Interventions Interventions: Vital Signs Last Done: 04/03/18 15:25 Status ED Status: Admitted Observation Patient
[2018-04-03] MEDS ORDERED: Sodium Chloride 0.9% 2 ML Flush PRN IV.FLUSH (19:19)
[2018-04-03 20:22] LABS: Bacteria,Urine Rare /hpf; Bilirubin,Urine Negative (Negative); Clarity,Urine Cloudy (Clear); Color,Urine Yellow (Yellw/Straw); Glucose,Urine (UA) Negative (Negative); Hyaline Casts,Urine 53 /lpf (0-3); Leukocyte Esterase,Urine Negative (Negative); Mucus,Urine Few /lpf (Occasional); Nitrite,Urine Negative (Negative); Specific Gravity,Urine 1.014 (1.002-1.035); Squamous Epithelial Cell,Urine 2 /hpf (0-5)
[2018-04-03] MEDS: Budesonide-Formoterol 80/4.5 MCG 6.9 GM Inhaler INH SCH ×2 (21:09)
[2018-04-03] MEDS: Senna/Docusate Sodium 8.6/50 MG Tablet PO SCH (21:09)
[2018-04-03] MEDS: Sod Chloride 0.9% Inj 1,000 ML IV.CONT SCH (21:11)
[2018-04-03] MEDS: Sodium Chloride 0.9% 2 ML Flush BID IV.FLUSH SCH (21:12)
[2018-04-04 05:02] LABS: Baso % (Auto) 0.5 % (0.0-2.0); Eos # (Auto) 0.4 th/mm3 (0.0-0.4); Eos % (Auto) 5.3 % (0.0-4.0); Hematocrit 24.8 % (39.0-51.0); Hemoglobin 8.4 gm/dL (13.0-17.0); Lymph % (Auto) 24.4 % (9.0-44.0); Mean Corpuscular HGB Conc 33.8 % (32.0-36.0); Mean Corpuscular Hemoglobin 30.8 pg (27.0-34.0); Mean Corpuscular Volume 91.3 fL (80.0-100.0); Mean Platelet Volume 7.2 fL (7.0-11.0); Mono # (Auto) 0.6 th/mm3 (0.0-0.9); Neut # (Auto) 5.1 th/mm3 (1.8-7.7); Neut % (Auto) 62.8 % (16.0-70.0); Platelet Count 306 th/mm3 (150-450); Red Blood Count 2.72 mil/mm3 (4.50-5.90); Red Cell Distribution Width 14.7 % (11.6-17.2); White Blood Count 8.2 th/mm3 (4.0-11.0)
[2018-04-04 05:43] LABS: Alanine Aminotransferase 13 U/L (12-78); Albumin 2.3 g/dL (3.4-5.0); Alkaline Phosphatase 56 U/L (45-117); Anion Gap 11 meq/L (5-15); Aspartate Aminotransferase 14 U/L (15-37); Blood Urea Nitrogen 48 mg/dL (7-18); Calcium 8.3 mg/dL (8.5-10.1); Carbon Dioxide 25.9 meq/L (21.0-32.0); Chloride 105 meq/L (98-107); Glomerular Filtration Rate 43 mL/min (>89); Glucose,Random 87 mg/dL (74-106); Magnesium 2.8 mg/dL (1.5-2.5); Potassium 4.4 meq/L (3.5-5.1); Sodium 142 meq/L (136-145); Total Protein 6.2 g/dL (6.4-8.2)
[2018-04-04 05:45] LABS: Creatine Kinase 59 U/L (39-308)
[2018-04-04] MEDS: Sod Chloride 0.9% Inj 1,000 ML IV.CONT SCH ×2 (06:14→17:16)
--- NOTE | 2018-04-04 08:07 | P.PNOP ---
Subjective Interval history: Patient known to the undersigned. 5 days status post left total knee replacement. Discharge on Thursday. Was doing well had. Had good urine output. On Thursday had significant decreased urine output. Seen in the emergency room. Creatinine almost 4.0. IV fluids started. Creatinine has now dropped to 1.6 and urine output satisfactory. Physical Exam Vital signs: Vital Signs 04/03/18 13:33 04/03/18 13:38 04/03/18 15:25 Temperature 98.1 F 98.1 F Pulse Rate 96 H 96 H 95 H Respiratory Rate 24 20 12 Blood Pressure 97/54 L 97/54 L 111/59 L Pulse Oximetry 95 98 100 04/03/18 18:29 04/03/18 20:00 04/04/18 00:00 Temperature 97.7 F 98.3 F Pulse Rate 96 H 99 H 91 H Respiratory Rate 12 18 18 Blood Pressure 123/81 98/54 L 88/50 L Pulse Oximetry 95 95 04/04/18 04:00 Temperature 98.7 F Pulse Rate 95 H Respiratory Rate 18 Blood Pressure 89/52 L Pulse Oximetry 95 Intake & Output 04/03/18 04/04/18 04/04/18 18:59 06:59 18:59 Intake Total 50 / 50 1100 / 1100 Output Total 1000 / 1000 Balance 50 / 50 100 / 100 Weight 75.825 kg 81.4 kg Intake: IV 50 / 50 1000 / 1000 NS Inj 1,000 ML @ 100 mls/hr IV 1000 / 1000 .CONT .Q10H GRISELDA Rx#:[id number] Ancef 2 GM Premix Inj 2 gm In 50 / 50 50 ml @ 100 mls/hr IV.SIG ONCE ONE Rx#:[id number] Oral 100 / 100 Output: Urine 1000 / 1000 Narrative: Left knee mild swelling. No calf tenderness or abnormal swelling below the knee. Sensation normal. Range of motion restricted. Results - Labs CBC & Chem 7: 04/04/18 03:33 04/04/18 03:33 Laboratory Results - last 24 hr 04/03/18 04/03/18 04/03/18 14:30 16:15 19:50 WBC 11.7 H RBC 3.25 L Hgb 10.0 L Hct 29.6 L MCV 91.2 MCH 30.8 MCHC 33.8 RDW 14.7 Plt Count 327 MPV 7.0 Neut % (Auto) 73.3 H Lymph % (Auto) 18.1 [place] % (Auto) 6.6 Eos % (Auto) 1.6 Baso % (Auto) 0.4 Neut # (Auto) 8.5 H Lymph # (Auto) 2.1 [place] # (Auto) 0.8 Eos # (Auto) 0.2 Baso # (Auto) 0.0 WBC Differential . Differential Comment Auto diff final Sodium 133 L Potassium 5.1 Chloride 97 L Carbon Dioxide 21.0 Anion Gap 15 BUN 59 H Creatinine 3.97 H Estimated GFR 15 L Random Glucose 101 Calcium 9.6 Magnesium Total Bilirubin AST ALT Alkaline Phosphatase Total Creatine Kinase Total Protein Albumin Urine Color Yellow Urine Clarity Cloudy H Urine pH 5.0 Ur Specific [place] 1.014 Urine Protein Negative Urine Glucose (UA) Negative Urine Ketones Trace H Urine Occult Blood Negative Urine Nitrate Negative Urine Bilirubin Negative Urine Urobilinogen Less than 2 Ur Leukocyte Esterase Negative Urine RBC 1 Urine WBC 5 Ur Squamous Epith Cells 2 Urine Bacteria Rare H Hyaline Casts 53 Urine Mucus Few H Micro UA Comment Culture not ind Ur Microscopic Review Not Reportable Urine Culture Comments Culture not ind 04/04/18 04/04/18 03:33 03:33 WBC 8.2 RBC 2.72 L Hgb 8.4 L Hct 24.8 L MCV 91.3 MCH 30.8 MCHC 33.8 RDW 14.7 Plt Count 306 MPV 7.2 Neut % (Auto) 62.8 Lymph % (Auto) 24.4 [place] % (Auto) 7.0 Eos % (Auto) 5.3 H Baso % (Auto) 0.5 Neut # (Auto) 5.1 Lymph # (Auto) 2.0 [place] # (Auto) 0.6 Eos # (Auto) 0.4 Baso # (Auto) 0.0 WBC Differential . Differential Comment Auto diff final Sodium 142 Potassium 4.4 Chloride 105 D Carbon Dioxide 25.9 Anion Gap 11 BUN 48 H Creatinine 1.61 H Estimated GFR 43 L Random Glucose 87 Calcium 8.3 L D Magnesium 2.8 H Total Bilirubin 0.3 AST 14 L ALT 13 Alkaline Phosphatase 56 Total Creatine Kinase 59 Total Protein 6.2 L Albumin 2.3 L Urine Color Urine Clarity Urine pH Ur Specific [place] Urine Protein Urine Glucose (UA) Urine Ketones Urine Occult Blood Urine Nitrate Urine Bilirubin Urine Urobilinogen Ur Leukocyte Esterase Urine RBC Urine WBC Ur Squamous Epith Cells Urine Bacteria Hyaline Casts Urine Mucus Micro UA Comment Ur Microscopic Review Urine Culture Comments - Imaging Impressions Chest X-Ray 04/03/18 00:00 CONCLUSION: The lungs are clear. Knee X-Ray 04/03/18 00:00 CONCLUSION: Orthopedic hardware in excellent position. Stable postoperative knee. Assessment and Plan - Assessment and Plan Total knee replacement arthroplasty. Acute renal insufficiency. PLAN: Weightbearing as tolerated. Physical therapy for his left knee. IV hydration. Discharge when the patient is medically stable. Orthopedically stable for discharge whenever appropriate
[2018-04-04] MEDS: predniSONE 5 MG Tablet PO SCH (09:40)
[2018-04-04] MEDS: Sodium Chloride 0.9% 2 ML Flush BID IV.FLUSH SCH ×2 (09:40→20:48)
[2018-04-04] MEDS: Senna/Docusate Sodium 8.6/50 MG Tablet PO SCH ×2 (09:40→20:47)
[2018-04-04] MEDS: Budesonide-Formoterol 80/4.5 MCG 6.9 GM Inhaler INH SCH ×3 (09:42→20:49)
--- NOTE | 2018-04-04 12:32 | P.PNIM ---
Subjective Interval history: Patient is a 67-year-old male with a past medical history of hypertension, BPH, rheumatoid arthritis, COPD and chronic knee pain (status post right total knee done 03/30/2018; discharged home on 04/02/18) who presents with a complaint of being unable to urinate. He tells me that his urine has been very dark and he is only able to produce a small amount at a time. He does have a history of BPH. Denies any history of kidney pain or kidney stones. He is not experiencing any back or flank pain. He is also complaining of reduced appetite but tells me that he is hungry right now. No nausea vomiting or diarrhea. No chest pain or shortness of breath. He does have some wheeze on exam but he tells me this is because he has not had his inhaler. 04-04 creatinine has come down from 3.97-1.61 we will continue on fluids A.m. labs Voiding well Almost returning to his baseline hopefully by tomorrow Anemia we will check a.m. labs-may need a transfusion in future but hopefully will not Physical Exam Vital signs: Vital Signs 04/03/18 13:33 04/03/18 13:38 04/03/18 15:25 Temperature 98.1 F 98.1 F Pulse Rate 96 H 96 H 95 H Respiratory Rate 24 20 12 Blood Pressure 97/54 L 97/54 L 111/59 L Pulse Oximetry 95 98 100 04/03/18 18:29 04/03/18 20:00 04/04/18 00:00 Temperature 97.7 F 98.3 F Pulse Rate 96 H 99 H 91 H Respiratory Rate 12 18 18 Blood Pressure 123/81 98/54 L 88/50 L Pulse Oximetry 95 95 04/04/18 04:00 04/04/18 08:00 04/04/18 12:00 Temperature 98.7 F 98.4 F 99.3 F Pulse Rate 95 H 85 97 H Respiratory Rate 18 20 18 Blood Pressure 89/52 L 91/55 L 97/53 L Pulse Oximetry 95 92 L 92 L Intake & Output 04/03/18 04/04/18 04/04/18 18:59 06:59 18:59 Intake Total 50 / 50 1100 / 1100 Output Total 1000 / 1000 Balance 50 / 50 100 / 100 Weight 75.825 kg 81.4 kg Intake: IV 50 / 50 1000 / 1000 NS Inj 1,000 ML @ 100 mls/hr IV 1000 / 1000 .CONT .Q10H [facility] Rx#:[id number] Ancef 2 GM Premix Inj 2 gm In 50 / 50 50 ml @ 100 mls/hr IV.SIG ONCE ONE Rx#:[id number] Oral 100 / 100 Output: Urine 1000 / 1000 Narrative: GENERAL: Well-nourished, well-developed adult male in no obvious distress. SKIN: Focused-warm and dry. HEAD: Atraumatic. Normocephalic. CARDIOVASCULAR: Regular rate and rhythm. RESPIRATORY: No accessory muscle use. Wheeze. Breath sounds equal bilaterally. GASTROINTESTINAL: Abdomen soft, non-tender, distended/rounded. Positive bowel sounds. MUSCULOSKELETAL: Extremities without clubbing, cyanosis, or edema. No obvious deformities. Right knee has surgical dressing in place. No significant erythema or swelling in knee. No calf swelling or tenderness bilaterally. NEUROLOGICAL: Awake and alert. No obvious cranial nerve deficits. Motor grossly within normal limits. Normal speech. PSYCHIATRIC: Appropriate mood and affect; insight and judgment good. Results - Labs CBC & Chem 7: 04/04/18 03:33 04/04/18 03:33 Laboratory Results - last 24 hr 04/03/18 04/03/18 04/03/18 14:30 16:15 19:50 WBC 11.7 H RBC 3.25 L Hgb 10.0 L Hct 29.6 L MCV 91.2 MCH 30.8 MCHC 33.8 RDW 14.7 Plt Count 327 MPV 7.0 Neut % (Auto) 73.3 H Lymph % (Auto) 18.1 [place] % (Auto) 6.6 Eos % (Auto) 1.6 Baso % (Auto) 0.4 Neut # (Auto) 8.5 H Lymph # (Auto) 2.1 [place] # (Auto) 0.8 Eos # (Auto) 0.2 Baso # (Auto) 0.0 WBC Differential . Differential Comment Auto diff final Sodium 133 L Potassium 5.1 Chloride 97 L Carbon Dioxide 21.0 Anion Gap 15 BUN 59 H Creatinine 3.97 H Estimated GFR 15 L Random Glucose 101 Calcium 9.6 Magnesium Total Bilirubin AST ALT Alkaline Phosphatase Total Creatine Kinase Total Protein Albumin Urine Color Yellow Urine Clarity Cloudy H Urine pH 5.0 Ur Specific [place] 1.014 Urine Protein Negative Urine Glucose (UA) Negative Urine Ketones Trace H Urine Occult Blood Negative Urine Nitrate Negative Urine Bilirubin Negative Urine Urobilinogen Less than 2 Ur Leukocyte Esterase Negative Urine RBC 1 Urine WBC 5 Ur Squamous Epith Cells 2 Urine Bacteria Rare H Hyaline Casts 53 Urine Mucus Few H Micro UA Comment Culture not ind Ur Microscopic Review Not Reportable Urine Culture Comments Culture not ind 04/04/18 04/04/18 03:33 03:33 WBC 8.2 RBC 2.72 L Hgb 8.4 L Hct 24.8 L MCV 91.3 MCH 30.8 MCHC 33.8 RDW 14.7 Plt Count 306 MPV 7.2 Neut % (Auto) 62.8 Lymph % (Auto) 24.4 [place] % (Auto) 7.0 Eos % (Auto) 5.3 H Baso % (Auto) 0.5 Neut # (Auto) 5.1 Lymph # (Auto) 2.0 [place] # (Auto) 0.6 Eos # (Auto) 0.4 Baso # (Auto) 0.0 WBC Differential . Differential Comment Auto diff final Sodium 142 Potassium 4.4 Chloride 105 D Carbon Dioxide 25.9 Anion Gap 11 BUN 48 H Creatinine 1.61 H Estimated GFR 43 L Random Glucose 87 Calcium 8.3 L D Magnesium 2.8 H Total Bilirubin 0.3 AST 14 L ALT 13 Alkaline Phosphatase 56 Total Creatine Kinase 59 Total Protein 6.2 L Albumin 2.3 L Urine Color Urine Clarity Urine pH Ur Specific [place] Urine Protein Urine Glucose (UA) Urine Ketones Urine Occult Blood Urine Nitrate Urine Bilirubin Urine Urobilinogen Ur Leukocyte Esterase Urine RBC Urine WBC Ur Squamous Epith Cells Urine Bacteria Hyaline Casts Urine Mucus Micro UA Comment Ur Microscopic Review Urine Culture Comments - Imaging Impressions Chest X-Ray 04/03/18 00:00 CONCLUSION: The lungs are clear. Knee X-Ray 04/03/18 00:00 CONCLUSION: Orthopedic hardware in excellent position. Stable postoperative knee. Assessment and Plan - Assessment (1) MIKE (acute kidney injury) Code(s): N17.9 - Acute kidney failure, unspecified Status: Acute (2) COPD (chronic obstructive pulmonary disease) Code(s): J44.9 - Chronic obstructive pulmonary disease, unspecified Status: Chronic (3) Hypertension Code(s): I10 - Essential (primary) hypertension Status: Chronic (4) Hyponatremia Code(s): E87.1 - Hypo-osmolality and hyponatremia Status: Acute (5) Anemia Code(s): D64.9 - Anemia, unspecified Status: Acute - Plan Patient is a 67-year-old male with a past medical history of hypertension, BPH, rheumatoid arthritis, COPD and chronic knee pain (status post right total knee done 03/30/2018; discharged home on 04/02/18) who presents with a complaint of being unable to urinate. MIKE; acute -Previously normal kidney function; unsure of cause -Bolused 1 L NS in ED -NS at 100 mL's per hour; monitor kidney function -Monitor I&O Has continued to improve we will monitor 1 more day Hyponatremia; acute -Previously normal; likely related to kidney injury -Will likely improved with IVF; monitor Anemia; acute -Likely postsurgical; monitor COPD; chronic -Restart home medications -Wheeze on exam; x-ray ordered Hypertension; chronic -Hold home lisinopril due to acute kidney injury Knee pain -Status post total right knee. Pain medication ordered. DVT prophylaxis: Teds Code Status: Full code Discussed Condition With: RN and patient Discharge Planning: A.m. labs if better discharge tomorrow
[2018-04-04] MEDS ORDERED: ALPRAZolam 0.5 MG Tablet PO PRN (13:33)
[2018-04-04] MEDS: oxyCODONE/Acetaminophen 10/325 Tablet PO PRN ×2 (13:53→23:37)
[2018-04-04 21:53] VITALS: RESP 18
[2018-04-05 07:00] LABS: Baso # (Auto) 0.1 th/mm3 (0.0-0.2); Baso % (Auto) 0.8 % (0.0-2.0); Eos # (Auto) 0.5 th/mm3 (0.0-0.4); Hematocrit 24.3 % (39.0-51.0); Hemoglobin 8.2 gm/dL (13.0-17.0); Lymph # (Auto) 2.5 th/mm3 (1.0-4.8); Lymph % (Auto) 30.3 % (9.0-44.0); Mean Corpuscular HGB Conc 33.8 % (32.0-36.0); Mean Corpuscular Hemoglobin 31.4 pg (27.0-34.0); Mean Corpuscular Volume 92.8 fL (80.0-100.0); Mean Platelet Volume 7.2 fL (7.0-11.0); Mono # (Auto) 0.6 th/mm3 (0.0-0.9); Mono % (Auto) 7.3 % (0.0-8.0); Neut # (Auto) 4.6 th/mm3 (1.8-7.7); Neut % (Auto) 55.6 % (16.0-70.0); Platelet Count 301 th/mm3 (150-450); Red Blood Count 2.62 mil/mm3 (4.50-5.90); Red Cell Distribution Width 14.9 % (11.6-17.2); White Blood Count 8.2 th/mm3 (4.0-11.0)
[2018-04-05] MEDS: Sod Chloride 0.9% Inj 1,000 ML IV.CONT SCH (07:18)
[2018-04-05 07:27] LABS: Albumin 2.4 g/dL (3.4-5.0); Anion Gap 7 meq/L (5-15); Aspartate Aminotransferase 19 U/L (15-37); Blood Urea Nitrogen 25 mg/dL (7-18); Calcium 8.2 mg/dL (8.5-10.1); Carbon Dioxide 26.7 meq/L (21.0-32.0); Chloride 108 meq/L (98-107); Glomerular Filtration Rate 80 mL/min (>89); Glucose,Random 82 mg/dL (74-106); Magnesium 2.5 mg/dL (1.5-2.5); Potassium 4.5 meq/L (3.5-5.1); Sodium 142 meq/L (136-145)
[2018-04-05 07:39] LABS: Alanine Aminotransferase 13 U/L (12-78); Alkaline Phosphatase 61 U/L (45-117); Phosphorus 2.9 mg/dL (2.5-4.9); Total Protein 6.3 g/dL (6.4-8.2)
[2018-04-05 07:56] LABS: Eosinophils 6 % (0-4); Lymphocytes 14 % (9-44); Monocytes 5 % (0-8); Myelocytes 4 % (0-0); Platelet Estimate Normal (Normal); Platelet Morphology Normal (Normal)
[2018-04-05 08:55] VITALS: BP 100/62; PULSE 82; TEMP 97.7; O2SAT 95
[2018-04-05] MEDS: Senna/Docusate Sodium 8.6/50 MG Tablet PO SCH (09:00)
[2018-04-05] MEDS: Sodium Chloride 0.9% 2 ML Flush BID IV.FLUSH SCH (09:00)
[2018-04-05] MEDS: Budesonide-Formoterol 80/4.5 MCG 6.9 GM Inhaler INH SCH (09:00)
[2018-04-05] MEDS: predniSONE 5 MG Tablet PO SCH (09:00)
--- NOTE | 2018-04-05 10:12 | P.PNIM ---
Subjective Interval history: Patient is a 67-year-old male with a past medical history of hypertension, BPH, rheumatoid arthritis, COPD and chronic knee pain (status post right total knee done 03/30/2018; discharged home on 04/02/18) who presents with a complaint of being unable to urinate. He tells me that his urine has been very dark and he is only able to produce a small amount at a time. He does have a history of BPH. Denies any history of kidney pain or kidney stones. He is not experiencing any back or flank pain. He is also complaining of reduced appetite but tells me that he is hungry right now. No nausea vomiting or diarrhea. No chest pain or shortness of breath. He does have some wheeze on exam but he tells me this is because he has not had his inhaler. 04-04 creatinine has come down from 3.97-1.61 we will continue on fluids A.m. labs Voiding well Almost returning to his baseline hopefully by tomorrow Anemia we will check a.m. labs-may need a transfusion in future but hopefully will not 10-1 LABS IMPROVED CR LESS THAN 1 DC TO HOME TODAY RESUME [facility] TODAY Physical Exam Vital signs: Vital Signs 04/04/18 12:00 04/04/18 16:00 04/04/18 20:00 Temperature 99.3 F 98.6 F 98.3 F Pulse Rate 97 H 91 H 84 Respiratory Rate 18 17 18 Blood Pressure 97/53 L 91/53 L 96/55 L Pulse Oximetry 92 L 94 L 95 04/05/18 00:00 04/05/18 00:50 04/05/18 04:00 Temperature 98.2 F 97.5 F L Pulse Rate 85 80 Respiratory Rate 18 18 18 Blood Pressure 99/58 L 102/60 Pulse Oximetry 94 L 94 L 04/05/18 08:00 Temperature 97.7 F Pulse Rate 82 Respiratory Rate 18 Blood Pressure 100/62 Pulse Oximetry 95 Intake & Output 04/04/18 04/05/18 04/05/18 18:59 06:59 18:59 Intake Total 1000 / 1000 1260 / 1260 Output Total 950 / 950 Balance 1000 / 1000 310 / 310 Weight 81.4 kg Intake: IV 1000 / 1000 1000 / 1000 NS Inj 1,000 ML @ 100 mls/hr IV 1000 / 1000 1000 / 1000 .CONT .Q10H [facility] Rx#:[id number] Oral 260 / 260 Output: Urine 950 / 950 Other: # Voids 3 Date of Last Bowel Movement 04/04/18 04/04/18 04/05/18 # Bowel Movements 1 Narrative: GENERAL: Well-nourished, well-developed adult male in no obvious distress. SKIN: Focused-warm and dry. HEAD: Atraumatic. Normocephalic. CARDIOVASCULAR: Regular rate and rhythm. RESPIRATORY: No accessory muscle use. Wheeze. Breath sounds equal bilaterally. GASTROINTESTINAL: Abdomen soft, non-tender, distended/rounded. Positive bowel sounds. MUSCULOSKELETAL: Extremities without clubbing, cyanosis, or edema. No obvious deformities. Right knee has surgical dressing in place. No significant erythema or swelling in knee. No calf swelling or tenderness bilaterally. NEUROLOGICAL: Awake and alert. No obvious cranial nerve deficits. Motor grossly within normal limits. Normal speech. PSYCHIATRIC: Appropriate mood and affect; insight and judgment good. Results - Labs CBC & Chem 7: 04/05/18 04:53 04/05/18 04:53 Laboratory Results - last 24 hr 04/05/18 04/05/18 04:53 04:53 WBC 8.2 RBC 2.62 L Hgb 8.2 L Hct 24.3 L MCV 92.8 MCH 31.4 MCHC 33.8 RDW 14.9 Plt Count 301 MPV 7.2 Prelim Diff (Auto) Slide review pending Neut % (Auto) 55.6 Lymph % (Auto) 30.3 [place] % (Auto) 7.3 Eos % (Auto) 6.0 H Baso % (Auto) 0.8 Neut # (Auto) 4.6 Lymph # (Auto) 2.5 [place] # (Auto) 0.6 Eos # (Auto) 0.5 H Baso # (Auto) 0.1 WBC Differential Manual diff final Seg Neuts % (Manual) 70 Band Neuts % (Manual) 1 Lymphocytes % (Manual) 14 Monocytes % (Manual) 5 Eosinophils % (Manual) 6 H Myelocytes % (Man) 4 H Abs Neuts (Manual) 6.2 Differential Comment . Platelet Estimate Normal Platelet Morphology Normal Sodium 142 Potassium 4.5 Chloride 108 H Carbon Dioxide 26.7 Anion Gap 7 BUN 25 H Creatinine 0.94 Estimated GFR 80 L Random Glucose 82 Calcium 8.2 L Phosphorus 2.9 Magnesium 2.5 Total Bilirubin 0.3 AST 19 ALT 13 Alkaline Phosphatase 61 Total Protein 6.3 L Albumin 2.4 L TSH 1.230 Free T4 1.30 - Imaging ITS Impressions Chest X-Ray 04/03/18 00:00 CONCLUSION: The lungs are clear. Knee X-Ray 04/03/18 00:00 CONCLUSION: Orthopedic hardware in excellent position. Stable postoperative knee. - Procedures NONE Assessment and Plan - Assessment (1) MIKE (acute kidney injury) Code(s): N17.9 - Status: Acute (2) COPD (chronic obstructive pulmonary disease) Code(s): J44.9 - Status: Chronic (3) Hypertension Code(s): I10 - Status: Chronic (4) Hyponatremia Code(s): E87.1 - Status: Acute (5) Anemia Code(s): D64.9 - Status: Acute - Plan Patient is a 67-year-old male with a past medical history of hypertension, BPH, rheumatoid arthritis, COPD and chronic knee pain (status post right total knee done 03/30/2018; discharged home on 04/02/18) who presents with a complaint of being unable to urinate. MIKE; acute -Previously normal kidney function; unsure of cause -Bolused 1 L NS in ED -NS at 100 mL's per hour; monitor kidney function -Monitor I&O Has continued to improve we will monitor 1 more day Hyponatremia; acute -Previously normal; likely related to kidney injury -Will likely improved with IVF; monitor Anemia; acute -Likely postsurgical; monitor GIVE IRON AT DC COPD; chronic -Restart home medications -Wheeze on exam; x-ray ordered Hypertension; chronic -Hold home lisinopril due to acute kidney injury Knee pain -Status post total right knee. Pain medication ordered. DVT prophylaxis: Teds DC TO HOME TODAY FOLLOW UP WITH ORTHO SCHEDULED FOLLOW UP WITH PCP IN 2 TO 3 DAYS [facility]UME [facility] Code Status: FULL CODE Discussed Condition With: RN AND PT AND CM Discharge Planning: DC TO HOME WITH [facility]
--- NOTE | 2018-04-05 10:22 | P.DS ---
Date of admission: 04/03/18 16:39 Primary care physician: Jeff Patel MD Attending physician on discharge: Kenneth Horner Anticipated date of discharge: 04/05/18 Brief History from admission: Patient is a 67-year-old male with a past medical history of hypertension, BPH, rheumatoid arthritis, COPD and chronic knee pain (status post right total knee done 03/30/2018; discharged home on 04/02/18) who presents with a complaint of being unable to urinate. He tells me that his urine has been very dark and he is only able to produce a small amount at a time. He does have a history of BPH. Denies any history of kidney pain or kidney stones. He is not experiencing any back or flank pain. He is also complaining of reduced appetite but tells me that he is hungry right now. No nausea vomiting or diarrhea. No chest pain or shortness of breath. He does have some wheeze on exam but he tells me this is because he has not had his inhaler. Patient update on day of discharge: Patient is a 67-year-old male with a past medical history of hypertension, BPH, rheumatoid arthritis, COPD and chronic knee pain (status post right total knee done 03/30/2018; discharged home on 04/02/18) who presents with a complaint of being unable to urinate. He tells me that his urine has been very dark and he is only able to produce a small amount at a time. He does have a history of BPH. Denies any history of kidney pain or kidney stones. He is not experiencing any back or flank pain. He is also complaining of reduced appetite but tells me that he is hungry right now. No nausea vomiting or diarrhea. No chest pain or shortness of breath. He does have some wheeze on exam but he tells me this is because he has not had his inhaler. 30 creatinine has come down from 3.97-1.61 we will continue on fluids A.m. labs Voiding well Almost returning to his baseline hopefully by tomorrow Anemia we will check a.m. labs-may need a transfusion in future but hopefully will not 10-1 LABS IMPROVED CR LESS THAN 1 DC TO HOME TODAY RESUME [facility] DC TODAY DS: Diagnosis - Discharge Diagnosis (1) MIKE (acute kidney injury) Status: Acute (2) COPD (chronic obstructive pulmonary disease) Status: Chronic (3) Hypertension Status: Chronic (4) Hyponatremia Status: Acute (5) Anemia Status: Acute DS: Medications - Discharge Medications Prescriptions: sennosides-docusate sodium [Senna Plus] 2 tab PO BID #120 tab DS: Summary Hospital Course: Patient is a 67-year-old male with a past medical history of hypertension, BPH, rheumatoid arthritis, COPD and chronic knee pain (status post right total knee done 03/30/2018; discharged home on 04/02/18) who presents with a complaint of being unable to urinate. He tells me that his urine has been very dark and he is only able to produce a small amount at a time. He does have a history of BPH. Denies any history of kidney pain or kidney stones. He is not experiencing any back or flank pain. He is also complaining of reduced appetite but tells me that he is hungry right now. No nausea vomiting or diarrhea. No chest pain or shortness of breath. He does have some wheeze on exam but he tells me this is because he has not had his inhaler. 04-04 creatinine has come down from 3.97-1.61 we will continue on fluids A.m. labs Voiding well Almost returning to his baseline hopefully by tomorrow Anemia we will check a.m. labs-may need a transfusion in future but hopefully will not 10-1 LABS IMPROVED CR LESS THAN 1 DC TO HOME TODAY RESUME [facility] DC TODAY STOP LISINOPRIL - Time Spent with Patient Total time spent providing and/or coordinating discharge services: Greater than 30 minutes - Quality: VTE Deep Vein Thrombosis/Pulmonary Embolism Present on Admission: No Exam Vital signs: Vital Signs 04/04/18 12:00 04/04/18 16:00 04/04/18 20:00 Temperature 99.3 F 98.6 F 98.3 F Pulse Rate 97 H 91 H 84 Respiratory Rate 18 17 18 Blood Pressure 97/53 L 91/53 L 96/55 L Pulse Oximetry 92 L 94 L 95 04/05/18 00:00 04/05/18 00:50 04/05/18 04:00 Temperature 98.2 F 97.5 F L Pulse Rate 85 80 Respiratory Rate 18 18 18 Blood Pressure 99/58 L 102/60 Pulse Oximetry 94 L 94 L 04/05/18 08:00 Temperature 97.7 F Pulse Rate 82 Respiratory Rate 18 Blood Pressure 100/62 Pulse Oximetry 95 Intake & Output 04/04/18 04/05/18 04/05/18 18:59 06:59 18:59 Intake Total 1000 / 1000 1260 / 1260 Output Total 950 / 950 Balance 1000 / 1000 310 / 310 Weight 81.4 kg Intake: IV 1000 / 1000 1000 / 1000 NS Inj 1,000 ML @ 100 mls/hr IV 1000 / 1000 1000 / 1000 .CONT .Q10H [facility] Rx#:[id number] Oral 260 / 260 Output: Urine 950 / 950 Other: # Voids 3 Date of Last Bowel Movement 04/04/18 04/04/18 04/05/18 # Bowel Movements 1 Narrative: GENERAL: Well-nourished, well-developed adult male in no obvious distress. SKIN: Focused-warm and dry. HEAD: Atraumatic. Normocephalic. CARDIOVASCULAR: Regular rate and rhythm. RESPIRATORY: No accessory muscle use. Wheeze. Breath sounds equal bilaterally. GASTROINTESTINAL: Abdomen soft, non-tender, distended/rounded. Positive bowel sounds. MUSCULOSKELETAL: Extremities without clubbing, cyanosis, or edema. No obvious deformities. Right knee has surgical dressing in place. No significant erythema or swelling in knee. No calf swelling or tenderness bilaterally. NEUROLOGICAL: Awake and alert. No obvious cranial nerve deficits. Motor grossly within normal limits. Normal speech. PSYCHIATRIC: Appropriate mood and affect; insight and judgment good. Results Procedures completed during hospitalization: NONE Completed studies during hospitalization: Laboratory Results WBC 8.2 th/mm3 (4.0-11.0) 04/05/18 04:53 RBC 2.62 mil/mm3 (4.50-5.90) L 04/05/18 04:53 Hgb 8.2 gm/dL (13.0-17.0) L 04/05/18 04:53 Hct 24.3 % (39.0-51.0) L 04/05/18 04:53 MCV 92.8 fL (80.0-100.0) 04/05/18 04:53 MCH 31.4 pg (27.0-34.0) 04/05/18 04:53 MCHC 33.8 % (32.0-36.0) 04/05/18 04:53 RDW 14.9 % (11.6-17.2) 04/05/18 04:53 Plt Count 301 th/mm3 (150-450) 04/05/18 04:53 MPV 7.2 fL (7.0-11.0) 04/05/18 04:53 Prelim Diff (Auto) Slide review pending 04/05/18 04:53 Neut % (Auto) 55.6 % (16.0-70.0) 04/05/18 04:53 Lymph % (Auto) 30.3 % (9.0-44.0) 04/05/18 04:53 [place] % (Auto) 7.3 % (0.0-8.0) 04/05/18 04:53 Eos % (Auto) 6.0 % (0.0-4.0) H 04/05/18 04:53 Baso % (Auto) 0.8 % (0.0-2.0) 04/05/18 04:53 Neut # (Auto) 4.6 th/mm3 (1.8-7.7) 04/05/18 04:53 Lymph # (Auto) 2.5 th/mm3 (1.0-4.8) 04/05/18 04:53 [place] # (Auto) 0.6 th/mm3 (0.0-0.9) 04/05/18 04:53 Eos # (Auto) 0.5 th/mm3 (0.0-0.4) H 04/05/18 04:53 Baso # (Auto) 0.1 th/mm3 (0.0-0.2) 04/05/18 04:53 WBC Differential Manual diff final 04/05/18 04:53 Seg Neuts % (Manual) 70 % (16-70) 04/05/18 04:53 Band Neuts % (Manual) 1 % (0-6) 04/05/18 04:53 Lymphocytes % (Manual) 14 % (9-44) 04/05/18 04:53 Monocytes % (Manual) 5 % (0-8) 04/05/18 04:53 Eosinophils % (Manual) 6 % (0-4) H 04/05/18 04:53 Myelocytes % (Man) 4 % (0-0) H 04/05/18 04:53 Abs Neuts (Manual) 6.2 th/mm3 (1.8-7.7) 04/05/18 04:53 Differential Comment . 04/05/18 04:53 Platelet Estimate Normal (Normal) 04/05/18 04:53 Platelet Morphology Normal (Normal) 04/05/18 04:53 Sodium 142 meq/L (136-145) 04/05/18 04:53 Potassium 4.5 meq/L (3.5-5.1) 04/05/18 04:53 Chloride 108 meq/L (98-107) H 04/05/18 04:53 Carbon Dioxide 26.7 meq/L (21.0-32.0) 04/05/18 04:53 Anion Gap 7 meq/L (5-15) 04/05/18 04:53 BUN 25 mg/dL (7-18) H 04/05/18 04:53 Creatinine 0.94 mg/dL (0.60-1.30) 04/05/18 04:53 Estimated GFR 80 mL/min (>89) L 04/05/18 04:53 Random Glucose 82 mg/dL (74-106) 04/05/18 04:53 Calcium 8.2 mg/dL (8.5-10.1) L 04/05/18 04:53 Phosphorus 2.9 mg/dL (2.5-4.9) 04/05/18 04:53 Magnesium 2.5 mg/dL (1.5-2.5) 04/05/18 04:53 Total Bilirubin 0.3 mg/dL (0.2-1.0) 04/05/18 04:53 AST 19 U/L (15-37) 04/05/18 04:53 ALT 13 U/L (12-78) 04/05/18 04:53 Alkaline Phosphatase 61 U/L (45-117) 04/05/18 04:53 Total Creatine Kinase 59 U/L (39-308) 04/04/18 03:33 Total Protein 6.3 g/dL (6.4-8.2) L 04/05/18 04:53 Albumin 2.4 g/dL (3.4-5.0) L 04/05/18 04:53 TSH 1.230 uIU/mL (0.358-3.740) 04/05/18 04:53 Free T4 1.30 ng/dL (0.76-1.46) 04/05/18 04:53 Urine Color Yellow (Yellw/Straw) 04/03/18 19:50 Urine Clarity Cloudy (Clear) H 04/03/18 19:50 Urine pH 5.0 (5.0-8.5) 04/03/18 19:50 Ur Specific [place] 1.014 (1.002-1.035) 04/03/18 19:50 Urine Protein Negative mg/dL (Neg-Trace) 04/03/18 19:50 Urine Glucose (UA) Negative mg/dL (Negative) 04/03/18 19:50 Urine Ketones Trace mg/dL (Negative) H 04/03/18 19:50 Urine Occult Blood Negative (Negative) 04/03/18 19:50 Urine Nitrate Negative (Negative) 04/03/18 19:50 Urine Bilirubin Negative (Negative) 04/03/18 19:50 Urine Urobilinogen Less than 2 mg/dL (Less than 2) 04/03/18 19:50 Ur Leukocyte Esterase Negative (Negative) 04/03/18 19:50 Urine RBC 1 /hpf (0-3) 04/03/18 19:50 Urine WBC 5 /hpf (0-5) 04/03/18 19:50 Ur Squamous Epith Cells 2 /hpf (0-5) 04/03/18 19:50 Urine Bacteria Rare /hpf (None) H 04/03/18 19:50 Hyaline Casts 53 /lpf (0-3) 04/03/18 19:50 Urine Mucus Few /lpf (Occasional) H 04/03/18 19:50 Micro UA Comment Culture not ind 04/03/18 19:50 Ur Microscopic Review Not Reportable 04/03/18 19:50 Urine Culture Comments Culture not ind 04/03/18 19:50 Impressions Chest X-Ray 04/03/18 00:00 CONCLUSION: The lungs are clear. Knee X-Ray 04/03/18 00:00 CONCLUSION: Orthopedic hardware in excellent position. Stable postoperative knee. Labs on day of discharge: Labs from last 24 hours 04/05/18 04/05/18 04/05/18 04:53 04:53 04:53 WBC 8.2 RBC 2.62 L Hgb 8.2 L Hct 24.3 L MCV 92.8 MCH 31.4 MCHC 33.8 RDW 14.9 Plt Count 301 MPV 7.2 Prelim Diff (Auto) Slide review pending Neut % (Auto) 55.6 Lymph % (Auto) 30.3 [place] % (Auto) 7.3 Eos % (Auto) 6.0 H Baso % (Auto) 0.8 Neut # (Auto) 4.6 Lymph # (Auto) 2.5 [place] # (Auto) 0.6 Eos # (Auto) 0.5 H Baso # (Auto) 0.1 WBC Differential Manual diff final Seg Neuts % (Manual) 70 Band Neuts % (Manual) 1 Lymphocytes % (Manual) 14 Monocytes % (Manual) 5 Eosinophils % (Manual) 6 H Myelocytes % (Man) 4 H Abs Neuts (Manual) 6.2 Differential Comment . Platelet Estimate Normal Platelet Morphology Normal Sodium 142 Potassium 4.5 Chloride 108 H Carbon Dioxide 26.7 Anion Gap 7 BUN 25 H Creatinine 0.94 Estimated GFR 80 L Random Glucose 82 Hemoglobin A1c Pending Calcium 8.2 L Phosphorus 2.9 Magnesium 2.5 Total Bilirubin 0.3 AST 19 ALT 13 Alkaline Phosphatase 61 Total Protein 6.3 L Albumin 2.4 L TSH 1.230 Free T4 1.30 - Impressions ITS Impressions Chest X-Ray 04/03/18 00:00 CONCLUSION: The lungs are clear. Knee X-Ray 04/03/18 00:00 CONCLUSION: Orthopedic hardware in excellent position. Stable postoperative knee. Discharge Plan - Discharge Disposition Patient Disposition: W/Home Health Service - Discharge Condition Condition: Good - Discharge Order Discharge Orders: Discharge Order (Routine); Ordered 04/05/18 Ordered By: Kenneth Horner - Discharge Details Anticipated Discharge Date: 04/05/18 Discharge Comment: DC TO HOME WITH [facility] - Physicians Team Primary Care Provider: Jeff Patel Attending Provider: Kenneth Horner Other Providers: Search to Phone,Insurance
--- NOTE | 2018-04-05 10:24 | P.DCO ---
- Physical Therapy Order: Evaluate and treat, Improve ambulation, Strength and gait training - Occupational Therapy Order: Evaluate and treat, Improve ADL, Gross motor coordination, Fine motor coordination - Home Health Aide Order: To assist in: Bathing and personal care, honing machine operator and meal prep - Case Management Consult Yes - Certification I have seen patient Jeff Suarez on 04/05/18. My clinical findings support the need for the requested home health care services because: Limited mobility due to disease progression, Deconditioned with increased weakness, High risk of falls I certify that my clinical findings support that this patient is homebound because: Post-op weakness, Unsteady gait/balance
[2018-04-05 16:32] LABS: Hemoglobin A1c 5.9 % (4.3-6.0)
== END 2018-04-05 12:11 | disposition home health service (06) ==
LOC: NEPE 13:11 → INTOOBSV 16:39 → NEDA 16:39 → OBSVTOIN 16:39 → NEDA 18:40 → N06 18:45
PROVIDERS: ADMIT Hospitalist; ATTEND Hospitalist